=== PATIENT | male | born 1985 | race Two or more races ===

== ENCOUNTER 2020-05-10 19:47 | Inpatient (IN) | payer OTHER ==
[~2020-05-10] VITALS: Ht 188 cm; Wt 102.2 kg
[2020-05-10] MEDS ORDERED: cefTRIAXone 1GM/50ML D5W 50 ML IV ONE (23:30)
[2020-05-11] VITALS (7 sets, daily range): BP systolic 121–142; BP diastolic 75–94
[2020-05-11 00:41] LABS: Basophils # (auto) 0.1 10 ^3/uL (0-0.2); Basophils % (auto) 0.8 % (0.0-2.0); Eosinophils # (auto) 0.1 10 ^3/uL (0-0.8); Eosinophils % (auto) 1.2 % (0.0-7.0); Hematocrit 45.2 % (41.0-53.0); Hemoglobin 15.6 g/dL (13.5-17.5); Lymphocytes # (auto) 3.2 10 ^3/uL (0.4-5.4); Lymphocytes % (auto) 39.3 % (10.0-50.0); Mean Corpuscular Hemoglobin 29.3 pg (28.0-32.0); Mean Corpuscular Hgb Conc. 34.5 g/dL (32.0-36.0); Mean Corpuscular Volume 84.7 fL (80.0-100.0); Monocytes # (auto) 0.6 10 ^3/uL (0-1.3); Monocytes % (auto) 7.5 % (0.0-12.0); Neutrophils # (auto) 4.2 10 ^3/uL (1.6-8.6); Neutrophils % (auto) 51.2 % (37.0-80.0); Nucleated Red Blood Cells % 0.1 %; Platelet Count (auto) 232 10^3/uL (140-450); Red Blood Cells 5.34 10^6/uL (4.5-5.90); White Blood Cell 8.2 10^3/uL (4.4-10.8)
[2020-05-11 00:55] LABS: Albumin 4.2 g/dL (3.4-5.0); BUN/Creatinine Ratio 19.3; Calcium 9.4 mg/dL (8.5-10.1); Potassium 3.8 mmol/L (3.5-5.1)
[2020-05-11 00:57] LABS: Bilirubin, Total 0.7 mg/dL (0.2-1.0); Total Protein 8.5 g/dL (6.4-8.2)
[2020-05-11 02:19] LABS: CRP High Sensitivity 0.42 mg/dL (< 0.3)
[2020-05-11] MEDS ORDERED: VANCOMYCIN 1GM/250ML 250 ML IV ONE (04:15)
[2020-05-11] MEDS ORDERED: VANCOMYCIN PER PHARMACY 0 MG IV SCH (04:15)
[2020-05-11] MEDS ORDERED: NITROGLYCERIN 0.4 MG SL TAB SL PRN (04:15)
[2020-05-11] MEDS ORDERED: MORPHINE SULF INJ 2 MG/ML SYRINGE 1ML IV PRN (04:15)
--- NOTE | 2020-05-11 06:10 | NUR ---
arrival note patient arrived via wheelchair. pt is an inmate with federal guards at bedside.
--- NOTE | 2020-05-11 07:35 | NUR ---
took picture of wound at right hand third digit
--- NOTE | 2020-05-11 07:51 | NUR ---
Isabel swab walked to lab
[2020-05-11] MEDS: ENOXAPARIN SOD 40 MG/0.4 ML SYRINGE SC SCH (09:29)
[2020-05-11] MEDS: HYDROcodone-ACET 10/325MG TAB PO PRN ×2 (09:34→14:27)
--- NOTE | 2020-05-11 10:26 | NUR ---
Inhouse Covid swab walked to lab
[2020-05-11] MEDS: VANCOMYCIN 1GM/250ML 250 ML IV SCH ×2 (13:37→21:25)
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
--- NOTE | 2020-05-11 18:00 | NUR ---
PATIENT TRANSFERRED PATIENT COVID NEGATIVE AND TRANSFERRED TO ROOM 207, ASSUMED CARE OF PATIENT AWAKE AND ALERT. PATIENT RESPIRATION ARE EVEN AND UNLABORED NO S/S OF DISTRESS NOTED. PATIENT GUARD IS AT BEDSIDE. PATIENT INSTRUCTED TO CALL FOR ASSISTANCE NEED. BED IN LOWEST POSITION, SIDE RAILS UP X2, CALL LIGHT WITH IN REACH. WILL CONTINUE TO MONITOR.
--- NOTE | 2020-05-11 18:00 | NUR ---
Patient transferred to room 207A with RN, Trice Austin via wheelchair. Patient transferred with all belongings.
--- NOTE | 2020-05-11 19:30 | NUR ---
Opening Shift Note Assumed care of patient, awake and alert. No S/S of distress/SOB or pain. [employer] guards at bedside. Instructed to call for assist PRN, patient verbalized understanding. Safety precaution in place, call light within reach, will continue to monitor for changes Q1hr and PRN.
[2020-05-12 05:00] VITALS: BP 128/74
--- NOTE | 2020-05-12 05:27 | NUR ---
Followed up on [facility] result, chemical laboratory scientist said the specimen is not yet in, will follow up
--- NOTE | 2020-05-12 06:00 | NUR ---
Followed up again on [facility] but per lab staff, the test is still running
[2020-05-12 06:02] LABS: BUN/Creatinine Ratio 13.5; Calcium 8.9 mg/dL (8.5-10.1); Potassium 3.7 mmol/L (3.5-5.1)
--- NOTE | 2020-05-12 06:41 | NUR ---
Still no result for the [facility] [place]
[2020-05-12] MEDS: VANCOMYCIN 1GM/250ML 250 ML IV SCH ×3 (06:49→17:59)
[2020-05-12 08:14] LABS: INR 1.08 (0.9-1.15)
[2020-05-12] MEDS: HYDROcodone-ACET 10/325MG TAB PO PRN ×2 (08:17→16:30)
[2020-05-12 08:33] VITALS: BP 122/74
[2020-05-12] MEDS: ENOXAPARIN SOD 40 MG/0.4 ML SYRINGE SC SCH (09:44)
[2020-05-12 12:55] VITALS: BP 117/75
[2020-05-12 16:30] VITALS: BP 123/78
[2020-05-12 16:43] LABS: Hepatitis B Surface Antigen Negative (Negative)
[2020-05-12 16:44] LABS: Hepatitis C Antibody Negative (Negative)
[2020-05-12 16:45] LABS: Hepatitis A Ab IgM Negative; Hepatitis B Core IgM Negative
--- NOTE | 2020-05-12 19:45 | NUR ---
Patient ambulating in the hallway with jailguards, gait steady
--- NOTE | 2020-05-12 20:00 | NUR ---
Opening Shift Note Assumed care of patient, awake and alert. No S/S of distress/SOB or pain. Discussed on POC and to be NPO after MN, for I & D of the right hand tomorrow, patient verbalized understanding. Instructed to call for assist PRN, call light within reach, nursing home guards at bedside, will continue to monitor for changes Q1hr and PRN.
[2020-05-12 20:20] VITALS: BP 127/85
[2020-05-12 21:23] VITALS: BP 127/85
[2020-05-13] MEDS: VANCOMYCIN 1GM/250ML 250 ML IV SCH ×3 (00:10→18:12)
[2020-05-13 05:48] VITALS: BP 114/78
[2020-05-13] MEDS ORDERED: PROPOFOL 10 MG/ML 20 ML IV ONE ×2 (06:10→06:36)
[2020-05-13] MEDS ORDERED: DexAMETHasone SOD PHOS 10MG/1ML VIAL INJ ONE (06:10)
[2020-05-13] MEDS ORDERED: fentaNYL CITRATE 100 MCG/2 ML VL ONE (06:10)
[2020-05-13] MEDS ORDERED: ONDANSETRON HCL 4 MG/2 ML VIAL ONE (06:10)
[2020-05-13] MEDS ORDERED: KETOROLAC TROMETH 30 MG/ML 1ML VIAL ONE (06:10)
[2020-05-13] MEDS ORDERED: GLYCOPYRROLATE 0.2 MG/ML 1ML VIAL ONE (06:10)
[2020-05-13] MEDS ORDERED: MIDAZOLAM HCL 1MG/1ML-2 ML VIAL ONE (06:10)
[2020-05-13] MEDS ORDERED: LIDOCAINE 2% (LOCAL ANESTH.) PF 5ml SDV ONE (06:10)
--- NOTE | 2020-05-13 06:22 | NUR ---
Brought patient down to pre-op with international account manager, patient alert/oriented, not in distress. Endorsed to COLTON Rodriguez
[2020-05-13] MEDS ORDERED: ceFAZolin 1GM/50ML 100 ML IV ONE (06:29)
[2020-05-13] MEDS ORDERED: LIDOCAINE 1% HCL (LOCAL ANESTH.) INJ 20ML MDV ONE (06:29)
[2020-05-13] MEDS ORDERED: SUCCINYLCHOLINE CHLORIDE 20 MG/ML 10ML VIAL IV ONE (06:29)
[2020-05-13] MEDS ORDERED: DOXAPRAM HCL 20 MG/ML 20ML VIAL INJ IV ONE (06:29)
[2020-05-13] MEDS ORDERED: SODIUM CHLORIDE LOCK 10 ML ONE (06:36)
[2020-05-13] MEDS: BACITRACIN INJ 50000 UNIT VIAL ONE ×2 (06:54→07:00)
[2020-05-13] MEDS ORDERED: MEPERIDINE HCL (25 MG/ML) 1ML VIAL ONE (07:21)
[2020-05-13] MEDS ORDERED: BUPIVACAINE W/ EPINEPH 0.25% INJ 50ML MDV ONE (07:22)
[2020-05-13] MEDS: BUPIVACAINE 0.25% INJ 50ML VIAL ONE ×2 (07:25→07:35)
[2020-05-13] MEDS ORDERED: METOCLOPRAMIDE HCL 5MG/ml INJ 2ml VIAL IV PRN (07:30)
[2020-05-13] MEDS ORDERED: MORPHINE SULF INJ 2 MG/ML SYRINGE 1ML IV PRN (07:30)
[2020-05-13] MEDS ORDERED: HYDROmorphone HCL 2 MG/ML VL IV PRN (07:30)
[2020-05-13] MEDS ORDERED: ACCU-CHEK COMFORT CURVE STRIP VI ONE (07:30)
[2020-05-13] MEDS ORDERED: fentaNYL CITRATE 100 MCG/2 ML VL IV PRN (07:30)
--- NOTE | 2020-05-13 08:36 | NUR ---
CALLED 'S OFFICE, THEY SAID THE DR WILL NOT COME SEE THE PT FOR CONSULT DUE TO THEM NOT TAKING PT'S INSURANCE. CHARGE NURSE DAVID NOTIFIED.
[2020-05-13 09:00] VITALS: BP 132/92
[2020-05-13] MEDS: ENOXAPARIN SOD 40 MG/0.4 ML SYRINGE SC SCH (10:00)
--- NOTE | 2020-05-13 10:28 | NUR ---
NOTIFIED DR DYER THAT DR LOMAS ID PHYSICIAN DOES NOT SEE THIS INSURANCE.
[2020-05-13] MEDS: HYDROcodone-ACET 10/325MG TAB PO PRN ×3 (10:42→19:55)
[2020-05-13] MEDS ORDERED: VANCOMYCIN 1GM/250ML 250 ML IV ONE (11:15)
--- NOTE | 2020-05-13 11:52 | NUR ---
Nutrition Assessment Notes Please refer to link for full assessment notes. Est Energy needs: kcals (20-23 kcal/kgBW) Est Protein needs: 80-99 gms/day (0.8-1.0 gm/kgBW) Will continue to monitor and reassess prn. Addendum: 05/13/20 at [address] Amended: Links added.
[2020-05-13 12:46] VITALS: BP 127/78
[2020-05-13] MEDS: PIPERACILLIN-TAZOB 3.375GM 100 ML IV SCH ×2 (12:53→18:42)
[2020-05-13 17:00] VITALS: BP 145/81
--- NOTE | 2020-05-13 19:50 | NUR ---
Opening Shift Note Assumed care of patient, awake and alert. No S/S of distress/SOB or pain. Dressing to right hand is clean dry and intact. pulses palpable bilaterally to radial. , patient able to wiggle fingers and capillary refill <3 seconds. Instructed on POC and to call for assist PRN, will continue to monitor for changes Q1hr and PRN. bed in low position and call light within reach. guard at bedside.
--- NOTE | 2020-05-13 19:55 | NUR ---
pain pain 7/10 to right finger/hand, aching. patient medicated for pain
--- NOTE | 2020-05-13 20:55 | NUR ---
pain reported pain 3/10 tolerable level
[2020-05-13 21:09] VITALS: BP 120/83
[2020-05-14] MEDS: HYDROcodone-ACET 10/325MG TAB PO PRN ×5 (00:30→18:51)
[2020-05-14] MEDS: VANCOMYCIN 1GM/250ML 250 ML IV SCH ×4 (00:30→22:03)
--- NOTE | 2020-05-14 00:30 | NUR ---
pain pain 7/10 to right hand/finger patient medicated for pain
[2020-05-14] MEDS: PIPERACILLIN-TAZOB 3.375GM 100 ML IV SCH ×4 (01:23→18:52)
--- NOTE | 2020-05-14 01:30 | NUR ---
pain reassessment 3/10 pain to right hand/finger/ tolerable level of pain.
[2020-05-14 04:35] VITALS: BP 106/62
--- NOTE | 2020-05-14 04:46 | NUR ---
pain pain 8/10 to right hand/finger. patient medicated for pain. patient has palpable pulses bilaterally to radial, capillary refill <3sec, patient able to wiggle finger. Addendum: 05/14/20 at 0451 by SOFIE GALO RN RN dressing is clean dry and intact
--- NOTE | 2020-05-14 05:46 | NUR ---
pain reassessment 3/10 pain to right hand finger. patient reports tolerable level.
--- NOTE | 2020-05-14 06:35 | NUR ---
patient rounds patient is awake and alert denies sob distress or pain. patient is able to wiggle fingers on right hand, palpable bilateral radial pulses, capillary refill <3 seconds. dressing is clean dry and intact. IV is intact and patent. call light within reach. guard at bedside.
--- NOTE | 2020-05-14 07:16 | NUR ---
REPORT GIVEN TO DAYSHIFT RN PATIENT DENIES SOB DISTRESS OR PAIN
[2020-05-14 08:00] VITALS: BP 124/81
--- NOTE | 2020-05-14 08:00 | NUR ---
Opening Shift Note Assumed care of patient, awake and alert. No S/S of distress/SOB or pain. Instructed on POC and to call for assist PRN, will continue to monitor for changes Q1hr and PRN.
[2020-05-14] MEDS: ENOXAPARIN SOD 40 MG/0.4 ML SYRINGE SC SCH (08:58)
[2020-05-14 09:00] VITALS: BP 124/81
[2020-05-14 13:00] VITALS: BP 128/86
[2020-05-14 17:00] VITALS: BP 134/78
[2020-05-14] MEDS: IBUPROFEN 800 MG TAB PO PRN ×2 (17:46→22:03)
--- NOTE | 2020-05-14 18:53 | NUR ---
closing shift note Patient is comfortably resting in bed, no s/s of distress/sob noted/stated. Bed at lowest locked position and call light within reach. Guard at bedside for safety.
[2020-05-14 21:53] VITALS: BP 122/80
[2020-05-15] VITALS (7 sets, daily range): BP systolic 100–128; BP diastolic 61–90
[2020-05-15] MEDS: PIPERACILLIN-TAZOB 3.375GM 100 ML IV SCH ×4 (00:04→18:54)
[2020-05-15] MEDS: HYDROcodone-ACET 10/325MG TAB PO PRN ×5 (00:05→22:48)
[2020-05-15] MEDS: VANCOMYCIN 1GM/250ML 250 ML IV SCH ×3 (05:03→18:22)
[2020-05-15] MEDS: ENOXAPARIN SOD 40 MG/0.4 ML SYRINGE SC SCH (09:11)
[2020-05-15] MEDS: IBUPROFEN 800 MG TAB PO PRN (17:55)
--- NOTE | 2020-05-15 19:10 | NUR ---
Opening Shift Note Assumed care of patient from day shift RN patient awake and alert oriented x4. No S/S of distress/SOB or pain. Instructed on POC and to call for assist PRN, safety measures in place bed in lowest position side rails up x2 and call light with in reach. will continue to monitor for changes Q1hr and PRN.
[2020-05-16] MEDS: PIPERACILLIN-TAZOB 3.375GM 100 ML IV SCH ×4 (00:29→19:24)
[2020-05-16] MEDS: VANCOMYCIN 1GM/250ML 250 ML IV SCH ×4 (01:58→23:13)
[2020-05-16 05:00] VITALS: BP 118/79
[2020-05-16] MEDS: HYDROcodone-ACET 10/325MG TAB PO PRN ×2 (05:45→20:13)
[2020-05-16 08:00] VITALS: BP 115/76
[2020-05-16] MEDS: ENOXAPARIN SOD 40 MG/0.4 ML SYRINGE SC SCH (09:32)
[2020-05-16] MEDS: IBUPROFEN 800 MG TAB PO PRN ×2 (09:43→23:20)
[2020-05-16 12:00] VITALS: BP 125/86
--- NOTE | 2020-05-16 14:21 | NUR ---
Nutrition Followup Note Wt 104.5kg Pt was sleeping at time of rounds with guards outside the door. Pt is s/p debridement of wound on hand. Pt diet has been advanced to regular. Pt appetite appears to be good aeb pt with an avg po intake of 92% x 2 days per RN note Est Energy needs: 4534-7321 kcals (20-23 kcal/kgBW) Est Protein needs: 80-99 gms/day (0.8-1.0 gm/kgBW) Will continue to monitor and reassess prn. labs: WNL, gluc 139H BM: pt with 2 BMs 05/16 per RN note Skin: BS 20 low risk, wound on hand, full details in care nurse rn note PES: 1) Overweight r/t energy intake in excess of energy needs aeb 115% IBW and BMI of 28.2 kg/m2 2) Altered nutrition related lab values r/t current medical condition aeb hyperglycemia Comments Will continue to monitor PO status, skin status, pertinent labs and weight trends. Will f/u in 3-5 days. 1) Continue to carefully monitor pt PO intake to meet at least 75% of meals2) Continue current plan of care Expected Outcomes/Goals: Pt wt to trend down Pt labs to improve
[2020-05-16 16:52] VITALS: BP 124/70
--- NOTE | 2020-05-16 21:00 | NUR ---
Provided wound care to bilateral heels, and pictures taken. Upon assessment, patient has deep scratch on buttocks, patient refused wound care to that area and also refused picture taken of this area. Educated the importance of wound care, and importance for picture, patient verbally acknowledge education given, and still refused. Will continue to monitor patient.
[2020-05-16 22:00] VITALS: BP 121/83
[2020-05-17] MEDS: PIPERACILLIN-TAZOB 3.375GM 100 ML IV SCH ×4 (01:21→18:56)
[2020-05-17 05:00] VITALS: BP 131/71
[2020-05-17] MEDS: VANCOMYCIN 1GM/250ML 250 ML IV SCH ×3 (05:54→20:27)
[2020-05-17] MEDS: IBUPROFEN 800 MG TAB PO PRN ×2 (07:29→20:27)
[2020-05-17 09:36] VITALS: BP 120/70
[2020-05-17] MEDS: ENOXAPARIN SOD 40 MG/0.4 ML SYRINGE SC SCH (09:42)
--- NOTE | 2020-05-17 12:24 | NUR ---
WOUND CARE NOTE: New wound care request received regarding new skin issue noted by bedside nurse upon assessment. Bedside nurse took photograph of patient's new skin issue upon discovery for reference. Patient developed open wounds/abrasion to proximal Rt (0.5x1.0cm) and Lt (0.5x1.2cm) posterior ankle. Wound appears to be abrasions from leg cuffs. Cleansed patient's Rt and Lt posterior ankle wounds with wound cleanser,patted dry with gauze,applied Thera honey gel, covered with Band aid. Applied Stockinette to bilateral lower leg to protect skin from leg cuffs. Patient is four days s/p Irrigation and Debridement of Abscess, septic arthritis of Rt dorsal hand 3rd digit. MD ordered Daily dressing change. Patient's Rt hand 3rd digit has 7 cm well approximated sutured incision. Wound has mild erythema and mild edema, scant serous drainage noted, no odor noted. Patient is able to move hands and fingers. Cleansed patient's Rt hand 3rd digit wound with wound cleanser,patted dry with gauze,applied Xeroform dressing along incision, covered with gauze, wrapped with gauze roll and secured with tape. Further secured with salvador wrap dressing. Patient's buttocks noted with linear scratches, area is clean and dry, asymptomatic left open to air. Patient tolerated well. Guards at bedside. RECOMMENDATION: Nursing to continue with EOD/PRN dressing change to Rt and Lt posterior ankle wounds; Daily dressing change to R hand 3rd digit wound per MD order, continue monitoring by wound care while patient is hospitalized. Addendum: 05/17/20 at 1647 by Rachel Colon RN Amended: Links added.
[2020-05-17 12:55] VITALS: BP 129/83
[2020-05-17] MEDS: HYDROcodone-ACET 10/325MG TAB PO PRN (15:55)
[2020-05-17 16:33] VITALS: BP 124/89
[2020-05-17 22:00] VITALS: BP 131/74
[2020-05-18] MEDS: PIPERACILLIN-TAZOB 3.375GM 100 ML IV SCH ×4 (00:46→18:36)
[2020-05-18] MEDS: HYDROcodone-ACET 10/325MG TAB PO PRN (00:55)
[2020-05-18] MEDS: VANCOMYCIN 1GM/250ML 250 ML IV SCH ×3 (02:49→17:18)
[2020-05-18 02:53] LABS: Basophils # (auto) 0.1 10 ^3/uL (0-0.2); Basophils % (auto) 0.9 % (0.0-2.0); Eosinophils # (auto) 0.4 10 ^3/uL (0-0.8); Eosinophils % (auto) 5.6 % (0.0-7.0); Hematocrit 39.6 % (41.0-53.0); Hemoglobin 13.6 g/dL (13.5-17.5); Lymphocytes # (auto) 2.5 10 ^3/uL (0.4-5.4); Lymphocytes % (auto) 38.5 % (10.0-50.0); Mean Corpuscular Hemoglobin 29.5 pg (28.0-32.0); Mean Corpuscular Hgb Conc. 34.3 g/dL (32.0-36.0); Mean Corpuscular Volume 85.9 fL (80.0-100.0); Monocytes # (auto) 0.5 10 ^3/uL (0-1.3); Monocytes % (auto) 8.2 % (0.0-12.0); Neutrophils # (auto) 3.1 10 ^3/uL (1.6-8.6); Neutrophils % (auto) 46.8 % (37.0-80.0); Platelet Count (auto) 142 10^3/uL (140-450); Red Blood Cells 4.61 10^6/uL (4.5-5.90); Red Cell Distribution Width 13.4 % (11.8-14.3); White Blood Cell 6.6 10^3/uL (4.4-10.8)
[2020-05-18 03:13] LABS: Potassium 4.3 mmol/L (3.5-5.1)
[2020-05-18 03:14] LABS: BUN/Creatinine Ratio 14.2; Calcium 8.5 mg/dL (8.5-10.1)
[2020-05-18 05:00] VITALS: BP 125/80
--- NOTE | 2020-05-18 07:30 | NUR ---
RECEIVED REPORT FROM NIGHT NURSE. PATIENT RESTING IN BED, NO DISTRESS NOTED. GUARD AT BEDSIDE SIDE. SHACKLES TO BILATERAL ANKLES, OPEN WOUNDS TO BILATERAL ANKLES UNDER SHACKLES. DRESSINGS IN PLACE. HANDCUFF TO RIGHT WRIST, NO NOTED SKIN BREAKDOWN. WILL CONTINUE TO MONITOR.
[2020-05-18] MEDS: IBUPROFEN 800 MG TAB PO PRN ×2 (08:22→17:15)
[2020-05-18 08:50] VITALS: BP 126/79
[2020-05-18] MEDS: ENOXAPARIN SOD 40 MG/0.4 ML SYRINGE SC SCH (10:00)
--- NOTE | 2020-05-18 12:22 | NUR ---
DOCTOR NEEMA AT BEDSIDE.
[2020-05-18 12:47] VITALS: BP_SYST 129; BP_SYST 132; BP_DIAS 58; BP_DIAS 76
--- NOTE | 2020-05-18 13:30 | NUR ---
PATIENT IN THE SHOWER.
--- NOTE | 2020-05-18 14:00 | NUR ---
IV REMOVAL IV TO LEFT HAND SWOLLEN AND RED, PATIENT COMPLAINING OF PAIN. IV REMOVED. CATHETER TIP INTACT, PRESSURE DRESSING APPLIED.
--- NOTE | 2020-05-18 14:00 | NUR ---
DRESSING CHANGE DRESSING TO RIGHT HAND/ FINGER REMOVED. WOUND CLEANSED WITH WOUND CLEANSER, XEROFORM APPLIED, COVERED WITH 4X4 GAUZE, WRAPPED WITH GAUZE. WRAPPED WITH CAN BANDAGE. PATIENT TOLERATED IT WELL. WILL CONTINUE TO MONITOR.
[2020-05-18 17:00] VITALS: BP 121/75
[2020-05-18 21:22] VITALS: BP 129/82
[2020-05-19] MEDS: VANCOMYCIN 1GM/250ML 250 ML IV SCH ×4 (00:25→21:06)
[2020-05-19] MEDS: HYDROcodone-ACET 10/325MG TAB PO PRN ×2 (00:26→23:29)
[2020-05-19] MEDS: PIPERACILLIN-TAZOB 3.375GM 100 ML IV SCH ×4 (00:59→17:55)
[2020-05-19] MEDS: IBUPROFEN 800 MG TAB PO PRN ×2 (06:18→14:27)
[2020-05-19 06:27] VITALS: BP 134/73
[2020-05-19 09:00] VITALS: BP 131/82
[2020-05-19] MEDS: ENOXAPARIN SOD 40 MG/0.4 ML SYRINGE SC SCH (10:30)
--- NOTE | 2020-05-19 12:41 | NUR ---
Nutrition Followup Note Wt 103.3 kg Pt was sleeping at time of rounds with guards outside the door. Pt is s/p debridement of wound on hand. Pt is currently on regular diet with adequate PO of > 75% x 2 days Est Energy needs: 6401-3739 kcals (20-23 kcal/kgBW), Est Protein needs: 80-99 gms/day (0.8-1.0 gm/kgBW). Will continue to monitor and reassess prn. labs: WNL, gluc 387H BM: pt with 1 BM 05/18 per RN note Skin: BS 23 low risk, wound on hand, full details in account executive healthcare note PES: 1) Overweight r/t energy intake in excess of energy needs aeb 115% IBW and BMI of 28.2 kg/m2 2) Altered nutrition related lab values r/t current medical condition aeb hyperglycemia Comments Will continue to monitor PO status, skin status, pertinent labs and weight trends. Will f/u in 3-5 days. 1) consider CCHO 75 gm as pt with hx of DM. 2) consider MVI/C bid. 3) Continue current plan of care
[2020-05-19 13:00] VITALS: BP 133/89
[2020-05-19 17:00] VITALS: BP 120/70
--- NOTE | 2020-05-19 17:00 | NUR ---
DRESSING CHANGE ALL DRESSING REMOVED, WOUND CLEANSED AND REDRESSED WITH XEROFORM/4X4/KERLIX. PATIENT TOLERATED WELL.
--- NOTE | 2020-05-19 19:35 | NUR ---
RECEIVED PATIENT FROM DAY SHIFT RN. PATIENT RESTING IN BED. NO S/S OF DISTRESS NOTED. C/O PAIN @ 5/10 AFTER PAIN MEDICATION GIVEN EARLIER. REINFORCED SCHEDULE OF PAIN MANAGEMENT. WILL COME BACK FOR PAIN MEDICATION WHEN THE TIME IS DUE AND PER PATIENT REQUESTS. DRESSING ON RIGHT HAND C/D/I. POC INSTRUCTED AND ENCOURAGED PATIENT TO CALL FOR PETS AND PET SUPPLIES SALESPERSON IF NEEDED. BED IN LOWEST POSITION WITH SIDE RAILS UP X 2. CALL PETIT WITHIN REACH. GUARDS AT BEDSIDE. CONTINUE TO MONITOR FOR CHANGES Q1H AND PRN.
[2020-05-19 22:00] VITALS: BP 121/83
--- NOTE | 2020-05-19 23:29 | NUR ---
MEDICATED PATIENT FOR PAIN @ 04/04 ORDERED. CONTINUE TO MONITOR.
--- NOTE | 2020-05-20 00:25 | NUR ---
REASSESSED PAIN @ 01/02. CONTINUE TO MONITOR.
[2020-05-20] MEDS: PIPERACILLIN-TAZOB 3.375GM 100 ML IV SCH ×4 (00:35→18:39)
[2020-05-20] MEDS: VANCOMYCIN 1GM/250ML 250 ML IV SCH ×3 (04:14→17:08)
--- NOTE | 2020-05-20 04:46 | NUR ---
PATIENT RESTING IN BED WITH EYES CLOSED. NO S/S OF DISTRESS NOTED. CONTINUE TO MONITOR.
[2020-05-20 05:00] VITALS: BP 122/76
[2020-05-20 09:00] VITALS: BP 119/80
[2020-05-20] MEDS: ENOXAPARIN SOD 40 MG/0.4 ML SYRINGE SC SCH (10:17)
[2020-05-20] MEDS: IBUPROFEN 800 MG TAB PO PRN ×2 (10:18→18:39)
[2020-05-20 13:00] VITALS: BP 119/77
[2020-05-20 17:00] VITALS: BP 120/76
--- NOTE | 2020-05-20 17:48 | NUR ---
WOUND CARE COMPLETED TO RIGHT HAND 3rd FINGER INCISION- PER ORDER. PT TOLERATED PROCEDURE WELL. CALL LIGHT WITHIN REACH. GUARD AT BEDSIDE.
--- NOTE | 2020-05-20 19:35 | NUR ---
RECEIVED PATIENT FROM DAY SHIFT RN. PATIENT RESTING IN BED. NO S/S OF DISTRESS NOTED. C/O PAIN @ 5/10 AFTER PAIN MEDICATION GIVEN EARLIER. REINFORCED SCHEDULE OF PAIN MANAGEMENT. WILL COME BACK FOR PAIN MEDICATION WHEN THE TIME IS DUE AND PER PATIENT REQUESTS. DRESSING ON RIGHT HAND C/D/I. POC INSTRUCTED AND ENCOURAGED PATIENT TO CALL FOR PUBLIC IMPROVEMENT INSPECTOR IF NEEDED. BED IN LOWEST POSITION WITH SIDE RAILS UP X 2. CALL PETIT WITHIN REACH. GUARDS AT BEDSIDE. CONTINUE TO MONITOR FOR CHANGES Q1H AND PRN.
[2020-05-20 21:16] VITALS: BP 114/77
[2020-05-21] MEDS: VANCOMYCIN 1GM/250ML 250 ML IV SCH ×4 (00:51→22:36)
[2020-05-21] MEDS: PIPERACILLIN-TAZOB 3.375GM 100 ML IV SCH ×4 (00:52→18:33)
--- NOTE | 2020-05-21 01:36 | NUR ---
PATIENT RESTING IN BED WITH EYES CLOSED. NO S/S OF DISTRESS NOTED. CONTINUE TO MONITOR.
[2020-05-21 05:12] VITALS: BP 119/80
--- NOTE | 2020-05-21 07:42 | NUR ---
RECEIVED REPORT FROM NOC SHIFT RN. PATIENT RESTING IN BED AND WATCHING TV. NO S/S OF DISTRESS NOTED, DENIES PAIN AT THIS TIME. OBSERVED DRESSING ON RIGHT HAND C/D/I. POC DISCUSSED AND ENCOURAGED PATIENT TO CALL FOR PIT BOSS IF NEEDED. BED IN LOWEST POSITION WITH SIDE RAILS UP X 2. CALL PETIT WITHIN REACH. GUARDS AT BEDSIDE. WILL CONTINUE TO MONITOR FOR CHANGES Q1H AND PRN.
[2020-05-21 08:00] VITALS: BP 119/85
[2020-05-21 08:31] VITALS: BP 119/85
[2020-05-21] MEDS: ENOXAPARIN SOD 40 MG/0.4 ML SYRINGE SC SCH (09:55)
[2020-05-21 12:54] VITALS: BP 115/71
[2020-05-21 16:59] VITALS: BP 120/81
--- NOTE | 2020-05-21 18:36 | NUR ---
PATIENT REQUESTING PAIN MEDICATION FOR 5/10 PAIN ON RIGHT HAND. WILL MEDICATE PER eMAR.
[2020-05-21] MEDS: IBUPROFEN 800 MG TAB PO PRN (18:41)
[2020-05-21 23:22] VITALS: BP 131/84
[2020-05-22] MEDS: PIPERACILLIN-TAZOB 3.375GM 100 ML IV SCH ×4 (02:56→20:14)
[2020-05-22 05:25] VITALS: BP 117/62
[2020-05-22] MEDS: VANCOMYCIN 1GM/250ML 250 ML IV SCH ×3 (05:44→23:53)
--- NOTE | 2020-05-22 06:41 | NUR ---
[facility]SA SWAB SENT.PT RESTING COMFORTABLY;NO DISTRESS OBSERVED.
--- NOTE | 2020-05-22 07:35 | NUR ---
OPENING NOTE RECEIVED PT. FROM NOC SHIFT RN. ALERT AND ORIENTED X4, NO SOB OR S/S OF DISTRESS NOTED, DENIES PAIN AT THIS TIME. POC DISCUSSED AND ENCOURAGED PATIENT TO CALL FOR FASHION DIRECTOR PARTY PLAN SALES IF NEEDED. BED IN LOWEST POSITION WITH SIDE RAILS UP X 2. CALL PETIT WITHIN REACH. GUARDS AT BEDSIDE. WILL CONTINUE TO MONITOR FOR CHANGES Q1H AND PRN.
[2020-05-22 08:00] VITALS: BP 115/73
[2020-05-22 09:00] VITALS: BP 115/73
--- NOTE | 2020-05-22 10:36 | NUR ---
Nutrition Followup Note Wt 102.5 kg Pt was sleeping at time of rounds with guards outside the door. Pt is s/p debridement of wound on hand. Pt is currently on regular diet with adequate PO of > 75% x 3 days Est Energy needs: 2227-6483 kcals (20-23 kcal/kgBW), Est Protein needs: 80-99 gms/day (0.8-1.0 gm/kgBW). Will continue to monitor and reassess prn. labs: WNL, gluc 387H BM: pt with 1 BM yesterday per RN note Skin: BS 23 low risk, wound on hand, full details in transitional care manager note PES: 1) Overweight r/t energy intake in excess of energy needs aeb 115% IBW and BMI of 28.2 kg/m2 2) Altered nutrition related lab values r/t current medical condition aeb hyperglycemia Comments Will continue to monitor PO status, skin status, pertinent labs and weight trends. Will f/u in 3-5 days. 1) consider CCHO 75 gm as pt with hx of DM. 2) consider MVI/C bid. 3) Continue current plan of care
[2020-05-22] MEDS: IBUPROFEN 800 MG TAB PO PRN ×2 (10:39→20:23)
[2020-05-22] MEDS: ENOXAPARIN SOD 40 MG/0.4 ML SYRINGE SC SCH (10:40)
[2020-05-22 12:30] VITALS: BP 128/87
--- NOTE | 2020-05-22 13:25 | NUR ---
PER [facility] LAB STAFF, PATIENT IS POSITIVE FOR MRSA OF THE NARES. MD AWARE. PATIENT EDUCATED ON MRSA PRECAUTION.
--- NOTE | 2020-05-22 16:10 | NUR ---
WOUND CARE TO RIGHT HAND 3RD FINGER COMPLETED PER WOUND CARE ORDER.
--- NOTE | 2020-05-22 19:20 | NUR ---
OPENING NOTE RECEIVED PATIENT FROM DAY SHIFT RN. PATIENT RESTING IN BED. NO S/S OF DISTRESS NOTED. DRESSING ON RIGHT HAND C/D/I. POC INSTRUCTED AND ENCOURAGED PATIENT TO CALL FOR PRIMARY TEACHER IF NEEDED. BED IN LOWEST POSITION WITH SIDE RAILS UP X 2. CALL PETIT WITHIN REACH. GUARDS AT BEDSIDE. CONTINUE TO MONITOR FOR CHANGES Q1H AND PRN.
[2020-05-22 21:00] VITALS: BP 127/78
[2020-05-22] MEDS: MUPIROCIN 2% OINT 15gm or 22gm EACHNOSTRI SCH (22:00)
[2020-05-23] MEDS: PIPERACILLIN-TAZOB 3.375GM 100 ML IV SCH ×4 (01:20→18:48)
[2020-05-23 05:00] VITALS: BP 118/83
--- NOTE | 2020-05-23 07:24 | NUR ---
Closing note Endorsed care to day shift RN. No sob or distress noted.
--- NOTE | 2020-05-23 07:46 | NUR ---
OPENING NOTE RECEIVED PATIENT FROM DAY SHIFT RN. PATIENT RESTING IN BED. NO S/S OF DISTRESS NOTED. DRESSING ON RIGHT HAND C/D/I. POC INSTRUCTED AND ENCOURAGED PATIENT TO CALL FOR BOOK BINDER IF NEEDED. BED IN LOWEST POSITION WITH SIDE RAILS UP X 2. CALL PETIT WITHIN REACH. GUARDS AT BEDSIDE. CONTINUE TO MONITOR FOR CHANGES Q1H AND PRN.
[2020-05-23] MEDS: ENOXAPARIN SOD 40 MG/0.4 ML SYRINGE SC SCH (08:30)
[2020-05-23] MEDS: VANCOMYCIN 1GM/250ML 250 ML IV SCH ×3 (08:31→23:52)
[2020-05-23] MEDS: MUPIROCIN 2% OINT 15gm or 22gm EACHNOSTRI SCH ×2 (08:31→23:22)
[2020-05-23 09:09] VITALS: BP 123/83
[2020-05-23] MEDS: IBUPROFEN 800 MG TAB PO PRN (09:19)
--- NOTE | 2020-05-23 12:22 | NUR ---
PT REFUSED NEW IV CURRENT IV WAS PLACED 05/17. PT EDUCATED ON INFECTION PREVENTIONS AND ASEPSIS. PT VERBALIZED UNDERSTANDING AND STATES "YEAH BUT THIS ONE IS WORKING GOOD AND I DONT WANT OR NEED A NEW IV RIGHT NOW." Addendum: 05/23/20 at 1719 by MITZI KEYES RN RN CURRENT IV IS ASYMPTOMATIC, IS PATENT WITH NO S/S OF INFECTION OR INFILTRATION
[2020-05-23 14:10] VITALS: BP 134/85
--- NOTE | 2020-05-23 15:16 | NUR ---
WOUND CARE COMPLETED
[2020-05-23 17:18] VITALS: BP 119/76
--- NOTE | 2020-05-23 18:49 | NUR ---
IV insertion IV access obtained, via clean sterile technique by inserting 22 gauge catheter LEFT FOREARM after 2 attempt(s). IV secured properly. No trauma to site. Patient tolerated well. IV removal IV DC'd with clean sterile technique, catheter fully intact. Pressure dressing applied to site. Patient tolerated well.
[2020-05-23 22:00] VITALS: BP 119/75
[2020-05-24] MEDS: PIPERACILLIN-TAZOB 3.375GM 100 ML IV SCH ×4 (01:14→20:46)
[2020-05-24] MEDS: IBUPROFEN 800 MG TAB PO PRN ×3 (01:14→20:46)
[2020-05-24 05:10] VITALS: BP 124/75
[2020-05-24 08:00] VITALS: BP 130/84
[2020-05-24 09:00] VITALS: BP 130/81
[2020-05-24] MEDS: VANCOMYCIN 1GM/250ML 250 ML IV SCH ×2 (09:06→16:08)
[2020-05-24] MEDS: ENOXAPARIN SOD 40 MG/0.4 ML SYRINGE SC SCH (09:06)
[2020-05-24] MEDS: MUPIROCIN 2% OINT 15gm or 22gm EACHNOSTRI SCH ×2 (09:07→20:47)
--- NOTE | 2020-05-24 11:12 | NUR ---
PAIN Patient reports pain at 5/10 to right hand. Patient has requested Motrin for pain.
--- NOTE | 2020-05-24 11:30 | NUR ---
WOUND CARE NOTE: IN TO SEE PATIENT FOR SKIN INTEGRITY RE-EVALUATION. PATIENT HAS CURRENT ABI SCORE OF 20. PATIENT IS AMBULATORY. HE IS SHACKLED TO BED WITH CUFFS, TWO GUARDS AT BEDSIDE. PATIENT HAS INTACT POST SURGICAL DRESSING TO RIGHT HAND. PATIENT BEING FOLLOWED BY SURGEON FOR THIS WOUND. PATIENT'S ABRASIONS TO THE POSTERIOR ANKLES RENDERED FROM HIS CUFFS AREA HEALING WELL, WITH NO WOUND NOTED TO RIGHT ANKLE, SMALL 0.2 X 0.5 PARTIAL THICKNESS WOUND TO LEFT POSTERIOR ANKLE. THERAHONEY, OPTIFOAM GENTLE DRESSING APPLIED FOR REFERENCE. PATIENT HAS XEROSIS (DRY SKIN ) NOTED TO BILATERAL BUTTOCK. PATIENT HAS BEEN SCRATCHING HIS SKIN D/T DRYNESS. APPLIED HYDRAGUARD BARRIER CREAM TO SKIN FOR HYDRATION. NO OTHER SKIN INTEGRITY ISSUES NOTED. RECOMMEND: BID APPLICATION WITH HYDRAGUARD TO BUTTOCKS SKIN, DRESSING CHANGES TO RIGHT HAND WOUND PER SURGEON'S ORDER, CONTINUATION WITH ALL OTHER WOUND CARE ORDERS PREVIOUSLY PRESCRIBED BY MD. NO FURTHER WOUND CARE MONITORING IS NEEDED AT THIS TIME. Addendum: 05/24/20 at 1609 by Bridget Tovar RN Amended: Links added.
[2020-05-24 13:00] VITALS: BP 134/80
--- NOTE | 2020-05-24 16:15 | NUR ---
Wound care complete per MD orders Addendum: 05/24/20 at 181 by MARGRET KILPATRICK RN RN Wound care to patients right finger. Patient tolerated well, with no complains of discomfort. Addendum: 05/24/20 at 1818 by MARGRET KILPATRICK RN RN Dressing to right hand is c/d/i, no odor noted.
[2020-05-24 16:37] VITALS: BP 123/80
[2020-05-24 21:35] VITALS: BP 120/76
[2020-05-25] VITALS (7 sets, daily range): BP systolic 115–137; BP diastolic 69–84
[2020-05-25] MEDS: VANCOMYCIN 1GM/250ML 250 ML IV SCH ×3 (00:03→18:46)
[2020-05-25] MEDS: PIPERACILLIN-TAZOB 3.375GM 100 ML IV SCH ×4 (03:06→20:51)
[2020-05-25] MEDS: MUPIROCIN 2% OINT 15gm or 22gm EACHNOSTRI SCH ×2 (09:55→21:48)
[2020-05-25] MEDS: ENOXAPARIN SOD 40 MG/0.4 ML SYRINGE SC SCH (09:55)
[2020-05-25] MEDS: IBUPROFEN 800 MG TAB PO PRN ×2 (10:05→20:51)
--- NOTE | 2020-05-25 11:45 | NUR ---
Nutrition Followup Note Wt 102.3 kg Pt was awake at time of rounds with guards at bedside. Pt is currently on regular diet with adequate PO of 100% x 3 days. Pt reports to distress, feels good, doing well. Est Energy needs: 4003-8077 kcals (20-23 kcal/kgBW), Est Protein needs: 80-99 gms/day (0.8-1.0 gm/kgBW). Will continue to monitor and reassess prn. labs: WNL, Gluc 387H BM: Pt with 1 BM today per RN note Skin: BS 20 low risk, wound on hand, full details in child care lead teacher note PES: 1) Overweight r/t energy intake in excess of energy needs aeb 115% IBW and BMI of 28.2 kg/m2 2) Altered nutrition related lab values r/t current medical condition aeb hyperglycemia Comments Will continue to monitor PO status, skin status, pertinent labs and weight trends. Will f/u in 3-5 days. 1) consider CCHO 75 gm as pt with hx of DM. 2) consider MVI/C bid. 3) Continue current plan of care
--- NOTE | 2020-05-25 12:45 | NUR ---
Dr Zaragoza on unit
--- NOTE | 2020-05-25 17:05 | NUR ---
IV removal IV DC'd with clean sterile technique, catheter fully intact. Pressure dressing applied to site. Patient tolerated well.
--- NOTE | 2020-05-25 17:05 | NUR ---
IV insertion IV access obtained, via clean sterile technique by inserting 22 gauge catheter at after 1 attempt. IV secured properly. No trauma to site.
--- NOTE | 2020-05-25 19:20 | NUR ---
OPENING SHIFT NOTE Assumed care of patient who is A&O x4. Currently on RA with no s/s of distress. Reports 6/10 pain to right hand. Pain management options discussed. Dressing to right hand is CDI. PIN in left forearm is intact and patent. Flushed with 10ml NS. Patient is ambulatory without the use of assistive devices at baseline. Metal restraints present on right wrist and bilateral ankles. Armed correctional officers x2 at the bedside for supervision. POC discussed and patient verbalizes understanding. Bed is in low locked position with side rails up x2. Call light is within reach and patient encouraged to call for assistance when needed. Will continue to monitor for changes PRN.
[2020-05-26] MEDS: VANCOMYCIN 1GM/250ML 250 ML IV SCH ×3 (02:14→18:41)
[2020-05-26] MEDS: PIPERACILLIN-TAZOB 3.375GM 100 ML IV SCH ×4 (03:09→21:20)
[2020-05-26 05:00] VITALS: BP 120/78
--- NOTE | 2020-05-26 07:59 | NUR ---
OPENING NOTE ASSUMED CARE OF PT. ALERT AND ORIENTED. NO S/S OF SOB/DISTRESS NOTED. BED SET TO LOWEST POSITION/LOCKED. BEDSIDE RAILS UP X2. CALL LIGHT WITHIN REACH. INSTRUCTED PT TO CALL FOR ASSISTANCE. UPDATED ON POC. PT VERBALIZED UNDERSTANDING. WILL CONTINUE TO MONITOR Q 1HR AND PRN.
[2020-05-26 09:00] VITALS: BP 126/75
[2020-05-26] MEDS: ENOXAPARIN SOD 40 MG/0.4 ML SYRINGE SC SCH (09:39)
[2020-05-26] MEDS: MUPIROCIN 2% OINT 15gm or 22gm EACHNOSTRI SCH ×2 (09:39→21:21)
[2020-05-26 13:00] VITALS: BP 133/66
[2020-05-26] MEDS: HYDROcodone-ACET 10/325MG TAB PO PRN ×2 (14:30→21:39)
[2020-05-26 16:48] VITALS: BP 144/68
--- NOTE | 2020-05-26 20:00 | NUR ---
Opening Shift Note Assumed care of patient, awake and alert. No S/S of distress/SOB or pain. Instructed on POC and to call for assist PRN, will continue to monitor for changes Q1hr and PRN.Right hand dressing dry and intact.
[2020-05-26 22:00] VITALS: BP 124/78
[2020-05-27] MEDS: VANCOMYCIN 1GM/250ML 250 ML IV SCH ×3 (01:44→18:08)
[2020-05-27] MEDS: PIPERACILLIN-TAZOB 3.375GM 100 ML IV SCH ×4 (03:02→20:29)
[2020-05-27 05:00] VITALS: BP 123/76
--- NOTE | 2020-05-27 07:20 | NUR ---
Care report given to Gregg White, patient is resting no discomfort.
[2020-05-27] MEDS: HYDROcodone-ACET 10/325MG TAB PO PRN ×2 (08:12→19:47)
[2020-05-27 09:00] VITALS: BP 129/85
--- NOTE | 2020-05-27 09:24 | NUR ---
2244 05/27/20 - Contacted by [facility] vocational case manager Mirtha, provided verbal update on patient's current medical status. Mirtha requested current clinical notes, which was faxed to [phone].
[2020-05-27] MEDS: MUPIROCIN 2% OINT 15gm or 22gm EACHNOSTRI SCH (10:30)
[2020-05-27] MEDS: ENOXAPARIN SOD 40 MG/0.4 ML SYRINGE SC SCH (10:30)
[2020-05-27 13:00] VITALS: BP 139/80
--- NOTE | 2020-05-27 14:30 | NUR ---
SPOKE WITH DR. DYER, HE SAID PT IS CLEARED FOR DISCHARGE, TO FOLLOW UP IN 1 WEEK FOR SURE REMOVAL. HE SAID TO COVER INCISION WITH GAUZE OR BANDAGE.
[2020-05-27 16:59] VITALS: BP 137/79
[2020-05-27 21:00] VITALS: BP 125/81
[2020-05-28] MEDS: HYDROcodone-ACET 10/325MG TAB PO PRN ×4 (01:14→22:32)
[2020-05-28] MEDS: VANCOMYCIN 1GM/250ML 250 ML IV SCH ×3 (01:38→17:35)
[2020-05-28] MEDS: PIPERACILLIN-TAZOB 3.375GM 100 ML IV SCH ×4 (02:40→22:14)
[2020-05-28 05:00] VITALS: BP 122/63
--- NOTE | 2020-05-28 07:10 | NUR ---
Opening Shift Note Assumed care of patient, awake and alert. No S/S of distress/SOB or pain. Instructed on POC and to call for assist PRN, will continue to monitor for changes Q1hr and PRN. Guards present at bedside. Bed locked in lowest position, HOB elevated at least 30 degrees and call light is within reach.
[2020-05-28 09:00] VITALS: BP 127/74
[2020-05-28] MEDS: ENOXAPARIN SOD 40 MG/0.4 ML SYRINGE SC SCH (09:56)
[2020-05-28 13:00] VITALS: BP 125/72
--- NOTE | 2020-05-28 14:19 | NUR ---
Nutrition Followup Note Wt 104.5 kg Pt is doing well denies any GI issues and appetite is good aeb pt with 100% po intake x 3 days per Rn note. Per RN note reports pt is clear for DC Est Energy needs: 8434-4891 kcals (20-23 kcal/kgBW), Est Protein needs: 80-99 gms/day (0.8-1.0 gm/kgBW). Will continue to monitor and reassess prn. labs: WNL, Gluc 387H on 05/18 BM: Pt with 1 BM today per RN note Skin: BS 20 low risk, wound on hand, full details in wound care rn note PES: 1) Overweight r/t energy intake in excess of energy needs aeb 115% IBW and BMI of 28.2 kg/m2 2) Altered nutrition related lab values r/t current medical condition aeb hyperglycemia Comments Will continue to monitor PO status, skin status, pertinent labs and weight trends. Will f/u in 3-5 days. 1) consider CCHO 75 gm as pt with hx of DM. 2) consider MVI/C bid. 3) Continue current plan of care
[2020-05-28 16:49] VITALS: BP 125/71
--- NOTE | 2020-05-28 19:28 | NUR ---
ENDORSED CARE TO NOC SHIFT RN
[2020-05-28 23:26] VITALS: BP 143/85
[2020-05-29] MEDS: PIPERACILLIN-TAZOB 3.375GM 100 ML IV SCH ×4 (03:06→22:52)
[2020-05-29 04:38] VITALS: BP 107/69
[2020-05-29] MEDS: VANCOMYCIN 1GM/250ML 250 ML IV SCH ×4 (06:44→22:22)
--- NOTE | 2020-05-29 07:40 | NUR ---
Opening Note Received report from night RN. Patient is awake, alert and oriented x4. No signs or symptoms of distress noted at this time. Dressing to right hand is clean, dry and intact. Patient denies pain at this time. Reviewed plan of care with patient, patient verbalized understanding. Bed in low and locked position, call light within reach. Will continue to monitor Q1 hour and PRN. Two guards at bedside.
[2020-05-29 09:00] VITALS: BP 116/71
--- NOTE | 2020-05-29 10:41 | NUR ---
IV Insertion IV access obtained, via clean sterile technique by inserting 22 gauge catheter to the left hand after one attempt. IV secured properly. No trauma to site. Patient tolerated well. Will continue to monitor Q1 hour and PRN.
[2020-05-29 13:00] VITALS: BP 123/68
--- NOTE | 2020-05-29 14:10 | NUR ---
Pain Patient complains of pain to right hand and is requesting NORCO. Will medicate per orders. Will continue to monitor Q1 hour and PRN.
[2020-05-29] MEDS: HYDROcodone-ACET 10/325MG TAB PO PRN ×2 (14:14→18:38)
[2020-05-29] MEDS: ENOXAPARIN SOD 40 MG/0.4 ML SYRINGE SC SCH (14:14)
[2020-05-29 16:52] VITALS: BP 131/76
--- NOTE | 2020-05-29 17:20 | NUR ---
Patient up to shower
--- NOTE | 2020-05-29 17:45 | NUR ---
Dressing changed Dressing changed completed to per MD orders. Patient tolerated well. Will continue to monitor Q1 hour and PRN.
--- NOTE | 2020-05-29 19:23 | NUR ---
Opening Shift Note Assumed care of patient, awake and alert x4. No S/S of distress/SOB or pain. Instructed on POC and to call for assist PRN, will continue to monitor for changes Q1hr and PRN.
--- NOTE | 2020-05-29 19:23 | NUR ---
Closing Note Report given to night shift manager RN. No signs or symptoms of distress noted at this time. Two guards at bedside.
[2020-05-29 22:00] VITALS: BP 125/78
[2020-05-30] MEDS: PIPERACILLIN-TAZOB 3.375GM 100 ML IV SCH ×4 (03:32→21:10)
[2020-05-30] MEDS: VANCOMYCIN 1GM/250ML 250 ML IV SCH ×3 (04:12→19:37)
--- NOTE | 2020-05-30 04:51 | NUR ---
Patient resting in bed. Denies any needs right now.
[2020-05-30 05:09] VITALS: BP 123/75
--- NOTE | 2020-05-30 07:40 | NUR ---
OPENING SHIFT NOTE: PATIENT RESTING IN BED, A/O X4 AWAKE. C/O PAIN IN THE LEFT LATERAL ABDOMEN AND FLANK. RESPIRATIONS EVEN AND UNLABORED. UPDATED ON PLAN OF CARE. CALL LIGHT WITHIN REACH, PATIENT ABLE TO RETURN DEMONSTRATION URINE STRAINING. WILL CONTINUE TO MONITOR. Addendum: 05/30/20 at 1237 by ABDIRIZAK GUILLERMO RN RN -MISTAKEN ENTRY WRONG PATIENT- OPENING SHIFT NOTE: PATIENT AWAKE RESTING IN BED, DRESSING TO LEFT MIDDLE FINGER CDI. PATIENT C/O PAIN 7/10 SHARP IN THAT INCISION. UPDATED ON PLAN OF CARE, PATIENT VERBALIZED UNDERSTANDING. PATIENT EDUCATION ON MIDLINE GIVEN AND MADE AWARE NEED FOR ASSISTED IV ANTIBIOTICS. CALL LIGHT WITHIN REACH, GUARDS AT BEDSIDE. WILL CONTINUE TO MONITOR.
[2020-05-30 09:00] VITALS: BP 111/67
[2020-05-30] MEDS: HYDROcodone-ACET 10/325MG TAB PO PRN ×2 (10:13→14:09)
[2020-05-30] MEDS: ENOXAPARIN SOD 40 MG/0.4 ML SYRINGE SC SCH (10:13)
--- NOTE | 2020-05-30 11:40 | NUR ---
MD ZENAIDA WORLEY. POSSIBLE PLANS FOR LITHOTRIPSY SATURDAY IF UNABLE TO PASS STONE. Addendum: 05/30/20 at 1234 by ABDIRIZAK GUILLERMO RN RN -MISTAKEN ENTRY-
[2020-05-30 13:00] VITALS: BP 129/80
--- NOTE | 2020-05-30 14:17 | NUR ---
Midline Placement: Patient educated on need for midline placement. All risks and benefits explained and all questions and concerns addresses prior to procedure. 18g/10 cm midline inserted via left brachial vein using Ultrasound. Sterile technique utilized. Blood return obtained from the single lumen and flushed easily with NS using proper technique. Midline secured with saline lock; biodisc and occlusive dressing applied. Primary RN Karlie notified. Midline lot # [id number]
[2020-05-30 16:59] VITALS: BP 131/80
--- NOTE | 2020-05-30 19:02 | NUR ---
CARE ENDORSED TO NOC RN.
[2020-05-30 21:19] VITALS: BP 123/76
[2020-05-31] MEDS: VANCOMYCIN 1GM/250ML 250 ML IV SCH ×4 (01:51→23:41)
[2020-05-31] MEDS: HYDROcodone-ACET 10/325MG TAB PO PRN ×4 (01:58→23:53)
[2020-05-31] MEDS: PIPERACILLIN-TAZOB 3.375GM 100 ML IV SCH ×4 (03:04→20:19)
--- NOTE | 2020-05-31 04:44 | NUR ---
Dressing changed Dressing changed completed to per MD orders. Patient tolerated well. Will continue to monitor Q1 hour and PRN.
[2020-05-31 05:25] VITALS: BP 110/76
--- NOTE | 2020-05-31 06:42 | NUR ---
END OF SHIFT NOTE WILL ENDORSE PT CARE TO DAY SHIFT RN. PT IS AOX4,NO S/S OF DISTRESS OR SOB
--- NOTE | 2020-05-31 08:00 | NUR ---
OPENING SHIFT NOTE: PATIENT RESTING IN BED AWAKE, UPDATED ON PLAN OF CARE. PATIENT VERBALIZED UNDERSTANDING. CALL LIGHT WITHIN REACH, GUARDS AT BEDSIDE, WILL CONTINUE TO MONITOR.
--- NOTE | 2020-05-31 08:45 | NUR ---
PATIENT C/O DRESSING TO RIGHT MIDDLE FINGER FALLING OFF, WILL RE-DRESS PER ORDERS.
[2020-05-31 09:00] VITALS: BP 133/73
--- NOTE | 2020-05-31 09:00 | NUR ---
DRESSING TO RIGHT MIDDLE FINGER CHANGED, CDI.
[2020-05-31] MEDS: ENOXAPARIN SOD 40 MG/0.4 ML SYRINGE SC SCH (10:28)
--- NOTE | 2020-05-31 10:55 | NUR ---
Nutrition Followup Note Wt 101.9 kg Pt sleeping with guards by bedside. pt with no distress noted currently on regular diet with adequate PO of 100% x 4 per RN doc Est Energy needs: 3427-3116 kcals (20-23 kcal/kgBW), Est Protein needs: 80-99 gms/day (0.8-1.0 gm/kgBW). Will continue to monitor and reassess prn. labs: WNL, 05/28 BM: Pt with 1 BM today per RN note Skin: BS 22 low risk, wound on hand, full details in memory care program resident note PES: 1) Overweight r/t energy intake in excess of energy needs aeb 115% IBW and BMI of 28.2 kg/m2 2) Altered nutrition related lab values r/t current medical condition aeb hyperglycemia Comments Will continue to monitor PO status, skin status, pertinent labs and weight trends. Will f/u in 3-5 days. 1) consider CCHO 75 gm as pt with hx of DM. 2) consider MVI/C bid. 3) Continue current plan of care
[2020-05-31 13:00] VITALS: BP 127/73
--- NOTE | 2020-05-31 14:39 | NUR ---
PATIENT AMBULATING AROUND UNIT, AND PERFORMED PERSONAL HYGIENE.
[2020-05-31 17:00] VITALS: BP 136/66
--- NOTE | 2020-05-31 17:53 | NUR ---
CARE ENDORSED TO MARTIR SEGURA.
--- NOTE | 2020-05-31 17:54 | NUR ---
Assumed care of patient Patient resting in bed with even and unlabored respirations on room air, no distress noted. Dressing to the right 3rd finger is clean, dry and intact. Instructed patient on POC, fall precautions and to call for assistance as needed. Patient verbalized understanding. Fall precautions in place with call light within reach. Guards at bedside.
--- NOTE | 2020-05-31 18:59 | NUR ---
Closing note Patient resting in bed with even and unlabored respirations on room air, no distress noted. Fall precautions in place with call light within reach.
--- NOTE | 2020-05-31 19:05 | NUR ---
Care endorsed to COLTON Trimble.
--- NOTE | 2020-05-31 19:30 | NUR ---
Opening Shift Note Assumed care of patient, awake and alert x4. Patient denies pain or shortness of breath at this time. No sign/symptoms of distress noted or verbalized at this time. Instructed on plan of care and encouraged patient to call for assistance as needed, patient verbalized understanding. Bed is locked in lowest position, side rails x 2 are up, call light is within reach, and guards noted at the bedside.
[2020-05-31 22:00] VITALS: BP 126/81
[2020-06-01] MEDS: PIPERACILLIN-TAZOB 3.375GM 100 ML IV SCH ×4 (03:04→22:41)
[2020-06-01 05:30] VITALS: BP 113/75
[2020-06-01] MEDS: HYDROcodone-ACET 10/325MG TAB PO PRN ×3 (05:53→20:35)
[2020-06-01] MEDS: VANCOMYCIN 1GM/250ML 250 ML IV SCH ×3 (06:43→20:12)
--- NOTE | 2020-06-01 06:48 | NUR ---
Wound Care Wound care to right 3rd digit performed as ordered by .
--- NOTE | 2020-06-01 07:30 | NUR ---
Opening Shift Note Assumed care of patient, awake and alert. No S/S of distress/SOB or pain. Instructed on POC and to call for assist PRN, will continue to monitor for changes Q1hr and PRN. Fall precautions in place per safety protocol.
--- NOTE | 2020-06-01 08:01 | NUR ---
MRI Called Radiology regarding pending MRI of hand. Per Radiology, they don't "hand" MRI's here. Will cont to monitor patient.
[2020-06-01 08:36] VITALS: BP 116/76
--- NOTE | 2020-06-01 08:45 | NUR ---
Vanco Patients morning Vanco line found to be closed. Per pharmacy open vanco line to infuse morning Vanco and they will discuss new time for afternoon vanco. Will cont to monitor patient.
[2020-06-01] MEDS: ENOXAPARIN SOD 40 MG/0.4 ML SYRINGE SC SCH (10:53)
[2020-06-01 13:00] VITALS: BP 134/83
[2020-06-01 17:00] VITALS: BP 133/76
--- NOTE | 2020-06-01 20:05 | NUR ---
Opening Shift Note Assumed care of patient, awake and alert. No S/S of distress/SOB or pain. Dressing to right middle finger dry and intact, no drainage noted. Longterm guards at bedside. Instructed on POC and to call for assist PRN, patient verbalized understanding. Safety precaution in place, call light within reach, will continue to monitor for changes Q1hr and PRN.
[2020-06-02] MEDS: VANCOMYCIN 1GM/250ML 250 ML IV SCH ×3 (02:45→17:20)
[2020-06-02] MEDS: PIPERACILLIN-TAZOB 3.375GM 100 ML IV SCH ×4 (03:47→21:00)
[2020-06-02] MEDS: HYDROcodone-ACET 10/325MG TAB PO PRN ×4 (04:59→23:02)
--- NOTE | 2020-06-02 05:02 | NUR ---
Dressing to right middle finger changed per MD order
[2020-06-02 06:00] VITALS: BP 127/77
[2020-06-02 07:22] LABS: Basophils # (auto) 0.1 10 ^3/uL (0-0.2); Basophils % (auto) 1.9 % (0.0-2.0); Eosinophils # (auto) 0.4 10 ^3/uL (0-0.8); Eosinophils % (auto) 8.3 % (0.0-7.0); Hematocrit 45.1 % (41.0-53.0); Hemoglobin 15.2 g/dL (13.5-17.5); Lymphocytes # (auto) 1.6 10 ^3/uL (0.4-5.4); Lymphocytes % (auto) 33.6 % (10.0-50.0); Mean Corpuscular Hemoglobin 29.1 pg (28.0-32.0); Mean Corpuscular Hgb Conc. 33.8 g/dL (32.0-36.0); Monocytes # (auto) 0.5 10 ^3/uL (0-1.3); Monocytes % (auto) 10.1 % (0.0-12.0); Neutrophils # (auto) 2.2 10 ^3/uL (1.6-8.6); Neutrophils % (auto) 46.1 % (37.0-80.0); Nucleated Red Blood Cells % 0.1 %; Platelet Count (auto) 199 10^3/uL (140-450); Red Blood Cells 5.25 10^6/uL (4.5-5.90); Red Cell Distribution Width 13.2 % (11.8-14.3); White Blood Cell 4.8 10^3/uL (4.4-10.8)
[2020-06-02 07:33] LABS: Albumin 3.9 g/dL (3.4-5.0); Potassium 4.6 mmol/L (3.5-5.1)
[2020-06-02 07:36] LABS: BUN/Creatinine Ratio 15.5; Bilirubin, Total 0.4 mg/dL (0.2-1.0); Total Protein 7.9 g/dL (6.4-8.2)
[2020-06-02] MEDS: ENOXAPARIN SOD 40 MG/0.4 ML SYRINGE SC SCH (11:09)
[2020-06-02 13:00] VITALS: BP 120/71
[2020-06-02 16:56] VITALS: BP 126/85
[2020-06-02 22:00] VITALS: BP 138/84
[2020-06-03] MEDS: VANCOMYCIN 1GM/250ML 250 ML IV SCH ×5 (00:08→20:13)
[2020-06-03] MEDS: PIPERACILLIN-TAZOB 3.375GM 100 ML IV SCH ×4 (02:59→21:21)
[2020-06-03 05:00] VITALS: BP 126/75
--- NOTE | 2020-06-03 05:56 | NUR ---
Attempted to change right hand wound dressing but patient requested to do it later today. Dressing dry and intact, no drainage noted. Will endorse to rené SEGURA
[2020-06-03] MEDS: HYDROcodone-ACET 10/325MG TAB PO PRN ×4 (08:07→21:21)
[2020-06-03 09:00] VITALS: BP 121/83
[2020-06-03] MEDS: ENOXAPARIN SOD 40 MG/0.4 ML SYRINGE SC SCH (09:49)
--- NOTE | 2020-06-03 12:08 | NUR ---
Nutrition Followup Note Wt 104.2 kg Pt sleeping with guards by bedside. pt with no distress noted currently on regular diet with adequate PO of 100% x 4 per RN doc Est Energy needs: 6156-9450 kcals (20-23 kcal/kgBW), Est Protein needs: 80-99 gms/day (0.8-1.0 gm/kgBW). Will continue to monitor and reassess prn. labs: GLU 247 H BM: Pt with 1 BM today per RN note Skin: BS 21 low risk, wound on hand, full details in home care aide note PES: 1) Overweight r/t energy intake in excess of energy needs aeb 115% IBW and BMI of 28.2 kg/m2 2) Altered nutrition related lab values r/t current medical condition aeb hyperglycemia Comments Will continue to monitor PO status, skin status, pertinent labs and weight trends. Will f/u in 3-5 days. 1) consider CCHO 75 gm as pt with hx of DM. 2) consider MVI/C bid. 3) Continue current plan of care
[2020-06-03 13:00] VITALS: BP 124/73
[2020-06-03 17:00] VITALS: BP 132/80
--- NOTE | 2020-06-03 19:50 | NUR ---
Opening Shift Note Assumed care of patient, awake and alert. Fall and safety precautions in place. Guards at bedside. Call light within reach and able to use. No S/S of distress/SOB. Instructed on POC and to call for assist PRN, patient verbalized understanding and in agreement. Will continue to monitor for changes Q1hr and PRN.
--- NOTE | 2020-06-03 20:20 | NUR ---
WOUND CARE PER MD ORDER, WOUND CARE PERFORMED AT THIS TIME. PATIENT TOLERATED WELL. WILL CONTINUE TO MONITOR.
[2020-06-03 22:00] VITALS: BP 121/69
[2020-06-04] MEDS: PIPERACILLIN-TAZOB 3.375GM 100 ML IV SCH ×4 (02:03→21:18)
[2020-06-04] MEDS: HYDROcodone-ACET 10/325MG TAB PO PRN ×4 (03:25→21:19)
[2020-06-04] MEDS: VANCOMYCIN 1GM/250ML 250 ML IV SCH ×3 (04:54→18:24)
[2020-06-04 05:00] VITALS: BP 104/71
[2020-06-04 07:09] LABS: Basophils # (auto) 0.1 10 ^3/uL (0-0.2); Eosinophils # (auto) 0.4 10 ^3/uL (0-0.8); Eosinophils % (auto) 7.4 % (0.0-7.0); Hematocrit 44.8 % (41.0-53.0); Hemoglobin 15.2 g/dL (13.5-17.5); Lymphocytes # (auto) 2.2 10 ^3/uL (0.4-5.4); Lymphocytes % (auto) 37.3 % (10.0-50.0); Mean Corpuscular Hemoglobin 29.2 pg (28.0-32.0); Mean Corpuscular Hgb Conc. 33.9 g/dL (32.0-36.0); Mean Corpuscular Volume 85.9 fL (80.0-100.0); Monocytes # (auto) 0.7 10 ^3/uL (0-1.3); Monocytes % (auto) 12.2 % (0.0-12.0); Neutrophils # (auto) 2.4 10 ^3/uL (1.6-8.6); Neutrophils % (auto) 41.1 % (37.0-80.0); Nucleated Red Blood Cells % 0.1 %; Platelet Count (auto) 200 10^3/uL (140-450); Red Blood Cells 5.22 10^6/uL (4.5-5.90); Red Cell Distribution Width 13.3 % (11.8-14.3); White Blood Cell 5.9 10^3/uL (4.4-10.8)
[2020-06-04 07:20] LABS: BUN/Creatinine Ratio 15.2; Calcium 9.5 mg/dL (8.5-10.1); Potassium 5.1 mmol/L (3.5-5.1)
[2020-06-04 08:00] VITALS: BP 122/74
--- NOTE | 2020-06-04 08:00 | NUR ---
Opening Shift Note Assumed care of patient, awake, alert and oriented X4. No S/S of distress/SOB, complains of right hand pain, 7/10, informed will medicate with prescribed pain medication. Left upper arm midline, patent and saline locked, dressing is clean, dry and intact. Right 3rd digit dressing clean, dry and intact. Right Achilles Tendon wound healed, no scab, just scar, left Achilles Tendon with scab intact, clean and dry, open to air. Guards X2 at bedside. Left wrist and bilateral ankles shackled to bed frame. Instructed on POC and to call for assist PRN, will continue to monitor for changes Q1hr and PRN.
[2020-06-04] MEDS: ENOXAPARIN SOD 40 MG/0.4 ML SYRINGE SC SCH (10:00)
--- NOTE | 2020-06-04 11:45 | NUR ---
ROUNDS Dr Zaragoza at bedside for rounds, new orders received and followed through. Patient updated on plan of care, verbalized understanding.
[2020-06-04 13:01] VITALS: BP 130/91
[2020-06-04 17:11] VITALS: BP 127/75
--- NOTE | 2020-06-04 19:45 | NUR ---
Opening Shift Note Assumed care of patient, AOx4. No S/S of distress/SOB. Fall and safety precautions in place. Guards at bedside. Call light within reach and able to use. Instructed on POC and to call for assist PRN, patient verbalized understanding and in agreement. Will continue to monitor for changes Q1hr and PRN.
--- NOTE | 2020-06-04 20:45 | NUR ---
IV insertion IV access obtained, via clean sterile technique by inserting 22 gauge catheter at left forearm on first attempt by Jeimy Mayo RN. IV secured properly. No trauma to site. Patient tolerated well.
--- NOTE | 2020-06-04 21:00 | NUR ---
MIDLINE REMOVAL MIDLINE OCCLUDED AND TENDER TO PATIENT. MIDLINE REMOVED AT THIS TIME WITH CATHETER FULLY INTACT. NO BLEEDING AT SITE. PATIENT EDUCATED TO MAINTAIN PRESSURE DRESSING TO PREVENT BLEEDING/BRUISING, PATIENT VERBALIZED UNDERSTANDING AND IN AGREEMENT. WILL CONTINUE TO MONITOR.
[2020-06-04 22:00] VITALS: BP 126/85
[2020-06-05] MEDS: HYDROcodone-ACET 10/325MG TAB PO PRN ×6 (01:32→22:11)
[2020-06-05] MEDS: VANCOMYCIN 1GM/250ML 250 ML IV SCH ×3 (01:32→20:27)
[2020-06-05] MEDS: PIPERACILLIN-TAZOB 3.375GM 100 ML IV SCH ×4 (02:50→22:10)
[2020-06-05 05:00] VITALS: BP 123/76
--- NOTE | 2020-06-05 08:00 | NUR ---
Opening Shift Note Assumed care of patient, awake, alert and oriented X4. No S/S of distress/SOB, complains of right third digit pain, 8/10, informed will medicate with prescribed pain medication. IV to left forearm, 22 gauge, patent and saline locked. Right 3rd digit dressing clean, dry and intact. Right Achilles Tendon wound healed, no scab, just scar, left Achilles Tendon with scab intact, clean and dry, open to air. Guards X2 at bedside. Left wrist and bilateral ankles shackled to bed frame. Instructed on POC and to call for assist PRN, will continue to monitor for changes Q1hr and PRN.
[2020-06-05 08:31] VITALS: BP 143/85
[2020-06-05] MEDS: ENOXAPARIN SOD 40 MG/0.4 ML SYRINGE SC SCH (10:00)
[2020-06-05 13:06] VITALS: BP 151/78
--- NOTE | 2020-06-05 15:30 | NUR ---
DRESSING CHANGE Dressing changed to right hand, 3rd digit, per wound care orders, patient tolerated without difficulty.
[2020-06-05 17:00] VITALS: BP 140/66
--- NOTE | 2020-06-05 19:22 | NUR ---
Care endorsed to COLTON Velez, night nurse.
[2020-06-05 21:00] VITALS: BP 128/80
[2020-06-06] MEDS: HYDROcodone-ACET 10/325MG TAB PO PRN ×5 (02:21→22:35)
[2020-06-06] MEDS: PIPERACILLIN-TAZOB 3.375GM 100 ML IV SCH ×4 (03:10→22:35)
[2020-06-06 05:00] VITALS: BP 108/74
[2020-06-06] MEDS: VANCOMYCIN 1GM/250ML 250 ML IV SCH ×3 (05:38→20:32)
--- NOTE | 2020-06-06 07:30 | NUR ---
Opening Shift Note Assumed care of patient, AOx4. No S/S of distress/SOB. Fall and safety precautions in place. Call light within reach and able to use. nursing home security at bedside, Instructed on POC and to call for assist PRN, patient verbalized understanding and in agreement. Will continue to monitor for changes Q1hr and PRN.
[2020-06-06 09:00] VITALS: BP 120/78
[2020-06-06] MEDS: ENOXAPARIN SOD 40 MG/0.4 ML SYRINGE SC SCH (11:21)
--- NOTE | 2020-06-06 11:25 | NUR ---
MD VISIT DR. BETHEA HERE TO SEE AND EXAMINED PATIENT
--- NOTE | 2020-06-06 12:38 | NUR ---
C/O MIDDLE FINGER PAIN,PATIENT MEDICATED WITH NORCO, SEE eMAR
--- NOTE | 2020-06-06 12:52 | NUR ---
Nutrition Followup Note Wt 103.9 kg Pt sleeping with guards by bedside. pt with no distress noted currently on regular diet with adequate PO of 100% per RN note Est Energy needs: 8010-3929 kcals (20-23 kcal/kgBW), Est Protein needs: 80-99 gms/day (0.8-1.0 gm/kgBW). Will continue to monitor and reassess prn. labs: Na 133L, BUN 19H, GLUC 345H, Alb 3.9 WNL BM: Pt with 1 BM today per RN note Skin: BS 21 low risk, wound on hand, full details in palliative care nurse note PES: 1) Overweight r/t energy intake in excess of energy needs aeb 115% IBW and BMI of 28.2 kg/m2 2) Altered nutrition related lab values r/t current medical condition aeb hyperglycemia Comments Will continue to monitor PO status, skin status, pertinent labs and weight trends. Will f/u in 5-7 days. 1) consider CCHO 75 gm as pt with hx of DM. 2) consider MVI/C bid. 3) Continue current plan of care
[2020-06-06 13:00] VITALS: BP 125/90
--- NOTE | 2020-06-06 13:20 | NUR ---
VANCO THROUGH LEVEL STILL PENDING
--- NOTE | 2020-06-06 15:45 | NUR ---
WOUND CARE TO RIGHT MIDDLE FINGER DONE
[2020-06-06 17:00] VITALS: BP 137/91
--- NOTE | 2020-06-06 18:13 | NUR ---
C/O PAIN TO RIGHT MIDDLE FINGER,MEDICATED WITH NORCO,SEE eMAR
--- NOTE | 2020-06-06 19:16 | NUR ---
Opening Shift Note Assumed care of patient, awake, alert and oriented x4, on room air with even and unlabored respirations, no S/S of distress/SOB or pain. Patient able to ambulate independently, bed in lowest locked position, side rails up x2, call light within reach, and guards at bedside. Instructed on POC and to call for assist PRN, will continue to monitor for changes Q1hr and PRN.
[2020-06-06 22:00] VITALS: BP 130/84
[2020-06-07] MEDS: PIPERACILLIN-TAZOB 3.375GM 100 ML IV SCH ×4 (03:30→22:17)
[2020-06-07 05:00] VITALS: BP 113/87
[2020-06-07] MEDS: HYDROcodone-ACET 10/325MG TAB PO PRN ×5 (05:31→22:17)
[2020-06-07] MEDS: VANCOMYCIN 1GM/250ML 250 ML IV SCH ×3 (05:31→20:53)
--- NOTE | 2020-06-07 07:30 | NUR ---
Opening Shift Note Report received,assumed care of patient. AOx4. No S/S of distress/SOB. Fall and safety precautions in place. Call light within reach and able to use. Instructed on POC and to call for assist PRN,Guard at bedside,shackles to both feet and right arm in place.patient verbalized understanding Will continue to monitor for changes Q1hr and PRN.
[2020-06-07 09:31] VITALS: BP 126/77
[2020-06-07] MEDS: ENOXAPARIN SOD 40 MG/0.4 ML SYRINGE SC SCH (10:59)
--- NOTE | 2020-06-07 11:10 | NUR ---
c/o right middle finger pain,medicated with [place] see eMAR
[2020-06-07 11:42] LABS: Basophils # (auto) 0.1 10 ^3/uL (0-0.2); Basophils % (auto) 1.2 % (0.0-2.0); Eosinophils # (auto) 0.3 10 ^3/uL (0-0.8); Eosinophils % (auto) 4.9 % (0.0-7.0); Hematocrit 47.8 % (41.0-53.0); Hemoglobin 16.5 g/dL (13.5-17.5); Lymphocytes # (auto) 1.8 10 ^3/uL (0.4-5.4); Lymphocytes % (auto) 28.3 % (10.0-50.0); Mean Corpuscular Hemoglobin 29.4 pg (28.0-32.0); Mean Corpuscular Hgb Conc. 34.5 g/dL (32.0-36.0); Mean Corpuscular Volume 85.1 fL (80.0-100.0); Monocytes # (auto) 0.6 10 ^3/uL (0-1.3); Monocytes % (auto) 9.8 % (0.0-12.0); Neutrophils # (auto) 3.6 10 ^3/uL (1.6-8.6); Neutrophils % (auto) 55.8 % (37.0-80.0); Nucleated Red Blood Cells % 0.2 %; Platelet Count (auto) 201 10^3/uL (140-450); Red Blood Cells 5.62 10^6/uL (4.5-5.90); Red Cell Distribution Width 13.2 % (11.8-14.3); White Blood Cell 6.5 10^3/uL (4.4-10.8)
[2020-06-07 13:00] VITALS: BP 143/79
--- NOTE | 2020-06-07 17:12 | NUR ---
c/o right middle finger pain 04/04,medicated with [place] 10/325 1 tablet po see eMAR for detail
--- NOTE | 2020-06-07 17:15 | NUR ---
Dressing changed to right middle finger
[2020-06-07 17:33] VITALS: BP 129/80
--- NOTE | 2020-06-07 18:35 | NUR ---
STATUS UNCHANGED NO DISTRESS,NO DISCOMFORT.
--- NOTE | 2020-06-07 19:20 | NUR ---
OPENING NOTE Received report from day shift RN. Patient is A&O X's 4 with no s/s of distress and reports no pain at this time. Right finger dressing C/D/I. patient denies any numbness/ tingling. Sensation intact. Educated patient on POC and to use call light when in need of assistance. Patient verbalized understanding. Bed is in lowest/locked position with side rails up X's 2 and call light is within reach of patient. Guards present at bedside. Provided patient with water at this time. Will continue care.
[2020-06-07 22:00] VITALS: BP 124/88
[2020-06-08] MEDS: HYDROcodone-ACET 10/325MG TAB PO PRN ×4 (01:11→19:35)
[2020-06-08] MEDS: PIPERACILLIN-TAZOB 3.375GM 100 ML IV SCH ×4 (03:38→21:46)
[2020-06-08] MEDS: VANCOMYCIN 1GM/250ML 250 ML IV SCH ×3 (04:58→20:46)
[2020-06-08 05:00] VITALS: BP 124/79
--- NOTE | 2020-06-08 07:24 | NUR ---
end of shift gave report to day shift RN. Will endorse care.Patient resting with no s/s of distress.
--- NOTE | 2020-06-08 07:30 | NUR ---
Assumed care of Pt. He is resting comfortably in bed, having breakfast. Denies pain at this time. Security guards by bedside.
[2020-06-08 09:00] VITALS: BP 135/82
[2020-06-08] MEDS: ENOXAPARIN SOD 40 MG/0.4 ML SYRINGE SC SCH (10:07)
[2020-06-08 13:00] VITALS: BP 125/70
[2020-06-08 17:00] VITALS: BP 128/88
--- NOTE | 2020-06-08 17:05 | NUR ---
Pt.'s dressing was changed. Stitches were cleansed with sterile water and gauze. Vaseline gauze was applied and kerlix wrapped around finger. Pt. tolerated well.
--- NOTE | 2020-06-08 18:42 | NUR ---
Pt. is resting comfortably in bed. Denies pain at this time. Bed is on lowest position, security guards by bedside. Call light within reach.
--- NOTE | 2020-06-08 19:30 | NUR ---
Opening Shift Note Assumed care of patient, awake and alert. Reported pain. Pain med will be given. Instructed on POC and to call for assist PRN, will continue to monitor for changes Q1hr and PRN.
[2020-06-08 22:00] VITALS: BP 134/89
--- NOTE | 2020-06-08 22:15 | NUR ---
IV insertion IV access obtained, via clean sterile technique by inserting 22 gauge catheter at left FA after 1 attempt(s). IV secured properly. No trauma to site. Patient tolerated procedure well. IV removal previous IV DC'd with sterile technique, catheter fully intact. Pressure dressing applied to site. Patient tolerated procedure well.
[2020-06-09] MEDS: HYDROcodone-ACET 10/325MG TAB PO PRN ×5 (02:07→22:16)
[2020-06-09] MEDS: VANCOMYCIN 1GM/250ML 250 ML IV SCH ×3 (04:34→20:46)
[2020-06-09] MEDS: PIPERACILLIN-TAZOB 3.375GM 100 ML IV SCH ×4 (04:39→21:57)
[2020-06-09 05:00] VITALS: BP 108/73
--- NOTE | 2020-06-09 09:11 | NUR ---
Assumed care of Pt. He is resting comfortably in bed, requesting pain medication. He was medicated. Bed in lowest position, guards by bedside.
[2020-06-09 09:20] VITALS: BP 122/78
[2020-06-09] MEDS: ENOXAPARIN SOD 40 MG/0.4 ML SYRINGE SC SCH (10:00)
--- NOTE | 2020-06-09 10:45 | NUR ---
Assumed care of patient Received report from COLTON Robles. Patient is awake, alert and oriented x4. No signs or symptoms of distress noted at this time. Reviewed plan of care with patient, patient verbalized understanding. Bed in low and locked position, call light within reach. Will continue to monitor Q1 hour and PRN. Two guards at bedside.
--- NOTE | 2020-06-09 12:50 | NUR ---
Pain Patient complains of pain 8/10 to right hand and is requesting NORCO. Will medicate per orders. Will continue to monitor Q1 hour and PRN.
[2020-06-09 13:00] VITALS: BP 133/82
[2020-06-09 17:45] VITALS: BP 126/83
--- NOTE | 2020-06-09 19:15 | NUR ---
Closing Note Report given to circuit designer RN. No signs or symptoms of distress noted at this time.
[2020-06-09 22:00] VITALS: BP 133/81
[2020-06-10] MEDS: HYDROcodone-ACET 10/325MG TAB PO PRN ×3 (02:12→14:22)
[2020-06-10] MEDS: VANCOMYCIN 1GM/250ML 250 ML IV SCH ×3 (04:48→20:48)
[2020-06-10] MEDS: PIPERACILLIN-TAZOB 3.375GM 100 ML IV SCH ×4 (04:50→22:08)
[2020-06-10 05:00] VITALS: BP 126/81
--- NOTE | 2020-06-10 07:36 | NUR ---
endorsed care to day RN, no sign of distress/pain at this time
[2020-06-10 09:03] VITALS: BP 125/93
[2020-06-10] MEDS: ENOXAPARIN SOD 40 MG/0.4 ML SYRINGE SC SCH (10:02)
--- NOTE | 2020-06-10 10:10 | NUR ---
RE:Suture removal Dr. Bermeo paged through exchange system to clarify suture removal. Per Lopez at [facility], Dr. Baer will be in to see patient sometime this morning, sutures to remain in place until MD sees patient. Per Lopez detailed message with patient information was delivered to
--- NOTE | 2020-06-10 12:35 | NUR ---
Dr. Bermeo at bed side for suture removal. Patient tolerated well. New orders received, read back and verified. Refer to order hx.
[2020-06-10 12:40] VITALS: BP 128/87
[2020-06-10 17:03] VITALS: BP 120/80
[2020-06-10] MEDS: IBUPROFEN 800 MG TAB PO PRN (20:07)
[2020-06-10 22:00] VITALS: BP 124/75
[2020-06-11] MEDS: PIPERACILLIN-TAZOB 3.375GM 100 ML IV SCH ×4 (03:52→22:05)
[2020-06-11 05:00] VITALS: BP 131/78
[2020-06-11 05:23] LABS: Basophils # (auto) 0.1 10 ^3/uL (0-0.2); Basophils % (auto) 1.2 % (0.0-2.0); Eosinophils # (auto) 0.4 10 ^3/uL (0-0.8); Eosinophils % (auto) 7.4 % (0.0-7.0); Hematocrit 46.2 % (41.0-53.0); Hemoglobin 15.6 g/dL (13.5-17.5); Lymphocytes # (auto) 2.4 10 ^3/uL (0.4-5.4); Lymphocytes % (auto) 44.8 % (10.0-50.0); Mean Corpuscular Hemoglobin 28.6 pg (28.0-32.0); Mean Corpuscular Hgb Conc. 33.7 g/dL (32.0-36.0); Mean Corpuscular Volume 84.8 fL (80.0-100.0); Monocytes # (auto) 0.5 10 ^3/uL (0-1.3); Neutrophils # (auto) 1.9 10 ^3/uL (1.6-8.6); Neutrophils % (auto) 36.6 % (37.0-80.0); Nucleated Red Blood Cells % 0.1 %; Platelet Count (auto) 202 10^3/uL (140-450); Red Blood Cells 5.45 10^6/uL (4.5-5.90); White Blood Cell 5.3 10^3/uL (4.4-10.8)
[2020-06-11 05:43] LABS: Potassium 4.1 mmol/L (3.5-5.1)
[2020-06-11 05:46] LABS: BUN/Creatinine Ratio 19.2
[2020-06-11] MEDS: VANCOMYCIN 1GM/250ML 250 ML IV SCH ×3 (06:07→23:03)
--- NOTE | 2020-06-11 07:18 | NUR ---
Report given to Gregg Unger, patient is resting no distress.
[2020-06-11 09:00] VITALS: BP 121/92
[2020-06-11] MEDS: ENOXAPARIN SOD 40 MG/0.4 ML SYRINGE SC SCH (09:20)
[2020-06-11] MEDS: HYDROcodone-ACET 10/325MG TAB PO PRN ×3 (09:25→22:06)
[2020-06-11 13:00] VITALS: BP 115/89
--- NOTE | 2020-06-11 14:37 | NUR ---
Nutrition Followup Note Wt 103.1 kg Pt ambulating with guards when rounded this morning. Pt is with a Regular diet with adequate PO of 100% per RN note. Est Energy needs: 4718-9409 kcals (20-23 kcal/kgBW), Est Protein needs: 80-99 gms/day (0.8-1.0 gm/kgBW). Will continue to monitor and reassess prn. Labs: BUN 19 H, GLUC 323 H BM: Pt with 1 BM today per RN note Skin: BS 21 low risk, wound on hand, full details in child care counselor note PES: 1) Overweight r/t energy intake in excess of energy needs aeb 115% IBW and BMI of 28.2 kg/m2 2) Altered nutrition related lab values r/t current medical condition aeb hyperglycemia Comments Will continue to monitor PO status, skin status, pertinent labs and weight trends. Will f/u in 5-7 days. 1) Consider CCHO 75 gm as pt with hx of DM. 2) consider MVI/C bid. 3) Continue current plan of care
--- NOTE | 2020-06-11 15:27 | NUR ---
PT WORKED AT BEDSIDE THER EX FOR R HAND/WRIST AND FINGERS. PT STATES PAIN LEVEL IS 6/10. PT WORKED ON WRIST EXT/FLEX, RD AND UD USING 1# WEIGHT X 15 REPS, FOLLOWED BY RED THERABAR X 15 REPS FOR WRIST EXT/FLEX/PRON/SUP THEN USED GREEN THERA HANDHOLE MACHINE OPERATOR X 15 REPS WHILE R HAND WAS IN PALM UP, DOWN, THUMB UP PT RECD GENTLE JOINT MOBS ALL DIGITS MOSTLY FOCUSING ON 3RD DIGIT PIP JOINT. PT DEMO'D MODERATE SWELLING ALONG W/ INCREASED PAIN AND DISCOMFORT WITH MOBILITY. PT ALSO RECD MANUAL WRIST STRETCHES FOR FLEXION AND EXTENSION 5 REPS HOLDING FOR 10 SECONDS EACH. Addendum: 06/11/20 at 1530 by Dayana Reynolds PT Amended: Links added.
[2020-06-11 17:00] VITALS: BP 132/86
--- NOTE | 2020-06-11 21:57 | NUR ---
Medication pass delayed due to code assist on unit. Called outside pharmacy, spoke with [facility] regarding ordered Vancomycin. Per Heaven, give ordered Zosyn over thirty minutes, then administer Vancomycin. Will administer and continue to monitor.
[2020-06-11 22:00] VITALS: BP 127/83
[2020-06-12] MEDS: PIPERACILLIN-TAZOB 3.375GM 100 ML IV SCH ×4 (04:28→23:00)
[2020-06-12 05:00] VITALS: BP 115/75
[2020-06-12] MEDS: VANCOMYCIN 1GM/250ML 250 ML IV SCH ×3 (05:40→21:30)
--- NOTE | 2020-06-12 06:42 | NUR ---
Closing Note Patient lying in bed, eyes closed, respirations even and unlabored, appears asleep. No s/s of distress. Call light within reach. Guards at bedside. Will endorse care to dayshift RN.
--- NOTE | 2020-06-12 07:30 | NUR ---
Opening Shift Note Assumed care of patient, awake and alert. No S/S of distress/SOB or pain. Instructed on POC and to call for assist PRN, will continue to monitor for changes Q1hr and PRN. Bed in low and locked position, rails up x2, no-slip socks on. Guards at bedside.
[2020-06-12] MEDS: HYDROcodone-ACET 10/325MG TAB PO PRN ×3 (08:25→18:41)
[2020-06-12 09:00] VITALS: BP 129/85
--- NOTE | 2020-06-12 10:20 | NUR ---
IV insertion/IV removal IV access obtained, via clean sterile technique by inserting 22 gauge catheter at left forearm after 2 attempts. IV secured properly. No trauma to site. Patient tolerated well. IV DC'd with clean sterile technique to old IV due to pain and tenderness at site, catheter fully intact. Pressure dressing applied to site. Patient tolerated well.
[2020-06-12] MEDS: ENOXAPARIN SOD 40 MG/0.4 ML SYRINGE SC SCH (10:54)
--- NOTE | 2020-06-12 11:00 | NUR ---
PATIENT REQUESTING TO SHOWER SUPPLIES PROVIDED, PATIENT INSTRUCTED ON SAFETY PRECAUTIONS WHILE SHOWERING, VERBALIZES UNDERSTANDING.
[2020-06-12 13:00] VITALS: BP 124/77
[2020-06-12 17:11] VITALS: BP 147/84
[2020-06-12 22:00] VITALS: BP 129/78
[2020-06-13] MEDS: HYDROcodone-ACET 10/325MG TAB PO PRN ×4 (02:33→19:38)
[2020-06-13] MEDS: PIPERACILLIN-TAZOB 3.375GM 100 ML IV SCH ×4 (04:00→22:00)
[2020-06-13 05:00] VITALS: BP 140/95
[2020-06-13] MEDS: VANCOMYCIN 1GM/250ML 250 ML IV SCH ×3 (05:30→20:30)
--- NOTE | 2020-06-13 06:58 | NUR ---
Closing Note Patient lying in bed, eyes closed, respirations even and unlabored, appears asleep. Patient awakens to name and touch. No s/s of distress. Call light within reach. Guards at bedside. Will endorse care to dayshift RN.
--- NOTE | 2020-06-13 07:30 | NUR ---
opening note Assumed care of patient from NOC RN. Patient is AOx4, no s/s of distress noted. Bed is in lowest locked position, side rails up x2 and call light is within reach. Updated patient on plan of care and patient verbalized understanding. Will continue to monitor q1hr and PRN.
[2020-06-13 08:00] VITALS: BP 130/87
[2020-06-13] MEDS: ENOXAPARIN SOD 40 MG/0.4 ML SYRINGE SC SCH (10:02)
--- NOTE | 2020-06-13 10:03 | NUR ---
physician rounding Dr. Banuelos at bedside. MD updated patient on plan of care, no new orders received. Will continue care.
[2020-06-13 12:00] VITALS: BP 118/73
[2020-06-13 16:57] VITALS: BP 142/87
--- NOTE | 2020-06-13 19:07 | NUR ---
end of shift note endorsed care to noc rn. No s/s of distress noted.
--- NOTE | 2020-06-13 19:40 | NUR ---
Opening Shift Note Assumed care of patient, awake and alert. No S/S of distress/SOB . Instructed on POC and to call for assist PRN, will continue to monitor for changes Q1hr and PRN.PAIN 03/04 PATIENT MEDICATED WITH NORCO
--- NOTE | 2020-06-13 19:52 | NUR ---
Opening Shift Note Assumed care of patient, awake and alert. No S/S of distress/SO. Instructed on POC and to call for assist PRN, will continue to monitor for changes Q1hr and PRN.PAIN LEVEL 7/10 NORCO ADMINISTERED.
[2020-06-13 22:00] VITALS: BP 128/76
[2020-06-14] MEDS: PIPERACILLIN-TAZOB 3.375GM 100 ML IV SCH ×4 (03:35→22:00)
[2020-06-14 05:00] VITALS: BP 126/81
[2020-06-14] MEDS: VANCOMYCIN 1GM/250ML 250 ML IV SCH ×3 (05:03→21:00)
[2020-06-14] MEDS: HYDROcodone-ACET 10/325MG TAB PO PRN ×4 (06:45→22:45)
--- NOTE | 2020-06-14 07:30 | NUR ---
opening note Assumed care of patient from NOC RN. Patient is AOx4, no s/s of distress noted. Bed is in lowest locked position, side rails up x2, 4 guards present at bedside and call light is within reach. Updated patient on plan of care and patient verbalized understanding. Will continue to monitor q1hr and PRN.
[2020-06-14 08:00] VITALS: BP 117/81
[2020-06-14 08:24] LABS: Calcium 9.1 mg/dL (8.5-10.1)
[2020-06-14] MEDS: ENOXAPARIN SOD 40 MG/0.4 ML SYRINGE SC SCH (10:54)
[2020-06-14 12:00] VITALS: BP 119/81
[2020-06-14 17:00] VITALS: BP 130/80
[2020-06-14 21:30] VITALS: BP 129/72
[2020-06-15] MEDS: PIPERACILLIN-TAZOB 3.375GM 100 ML IV SCH ×4 (03:36→22:39)
[2020-06-15] MEDS: HYDROcodone-ACET 10/325MG TAB PO PRN ×4 (04:00→20:53)
[2020-06-15 04:30] VITALS: BP 120/72
[2020-06-15] MEDS: VANCOMYCIN 1GM/250ML 250 ML IV SCH ×3 (05:09→20:38)
[2020-06-15 06:14] LABS: Basophils # (auto) 0 10 ^3/uL (0-0.2); Basophils % (auto) 0.6 % (0.0-2.0); Eosinophils # (auto) 0.4 10 ^3/uL (0-0.8); Eosinophils % (auto) 6.8 % (0.0-7.0); Hematocrit 41.7 % (41.0-53.0); Hemoglobin 13.8 g/dL (13.5-17.5); Lymphocytes # (auto) 2.2 10 ^3/uL (0.4-5.4); Lymphocytes % (auto) 41.9 % (10.0-50.0); Mean Corpuscular Hemoglobin 29.2 pg (28.0-32.0); Mean Corpuscular Hgb Conc. 33.1 g/dL (32.0-36.0); Mean Corpuscular Volume 88.2 fL (80.0-100.0); Monocytes # (auto) 0.6 10 ^3/uL (0-1.3); Monocytes % (auto) 10.7 % (0.0-12.0); Neutrophils # (auto) 2.1 10 ^3/uL (1.6-8.6); Nucleated Red Blood Cells % 0.1 %; Platelet Count (auto) 162 10^3/uL (140-450); Red Blood Cells 4.73 10^6/uL (4.5-5.90); Red Cell Distribution Width 12.7 % (11.8-14.3); White Blood Cell 5.3 10^3/uL (4.4-10.8)
--- NOTE | 2020-06-15 07:40 | NUR ---
Opening Shift Note Assumed care of patient, awake and alert. Respirations are even and non labored on room air. No S/S of distress/SOB or pain. Bed is in the lowest and locked position with side rails up x 2, call light within reach and guards x 2 at bedside. Instructed on POC and to call for assist PRN, will continue to monitor for changes Q1hr and PRN.
[2020-06-15 09:00] VITALS: BP 127/90
[2020-06-15] MEDS: ENOXAPARIN SOD 40 MG/0.4 ML SYRINGE SC SCH (10:00)
[2020-06-15 13:00] VITALS: BP 125/76
[2020-06-15 16:53] VITALS: BP 121/77
--- NOTE | 2020-06-15 19:40 | NUR ---
Opening Shift Note Patient is AOx4 and is awake watching TV. Patient bed locked in lowest position. No s/s of distress or SOB. Patient has pain and told he is not due for pain medications. Patient verbally agreed to understanding and said "okay." Hand has some mild swelling and warmer to touch in comparison to left hand. Scar from previous surgery on right middle finger noted and also swollen. esperanza noted on right upper hand. No other concerns. Will continue to monitor.
[2020-06-15 21:34] VITALS: BP 127/75
[2020-06-16] MEDS: PIPERACILLIN-TAZOB 3.375GM 100 ML IV SCH ×4 (03:34→21:21)
--- NOTE | 2020-06-16 04:45 | NUR ---
Lab Contacted Trough draw for Vancomycin has not yet been drawn. Lab contacted, they are in the middle of shift change and will be up as soon as they can. Outside pharmacy notified that lab draw for trough may take longer than expected. Spoke with Manjit from outside pharmacy. Manjit said to contact him when results of trough come in. Medication time may need to be adjusted.
[2020-06-16 04:59] VITALS: BP 116/76
--- NOTE | 2020-06-16 05:10 | NUR ---
Lab Here to Draw Trough level
--- NOTE | 2020-06-16 06:24 | NUR ---
Pharmacy Notified about Trough level 12.6 Pharmacy notified to reschedule vancomycin timing due to trough level not ran until now; also notified trough level is below 20.
[2020-06-16] MEDS: VANCOMYCIN 1GM/250ML 250 ML IV SCH ×3 (06:50→23:25)
--- NOTE | 2020-06-16 07:30 | NUR ---
Opening Shift Note Assumed care of patient, awake and alert. Respirations are even and non labored on room air. No S/S of distress/SOB or pain reported. Bed is in the lowest and locked position with side rails up x 2, call light within reach and guards x 2 at bedside. Instructed on POC and to call for assist PRN, will continue to monitor for changes Q1hr and PRN.
[2020-06-16 08:35] VITALS: BP 127/74
[2020-06-16] MEDS: ENOXAPARIN SOD 40 MG/0.4 ML SYRINGE SC SCH (10:00)
[2020-06-16] MEDS: HYDROcodone-ACET 10/325MG TAB PO PRN ×2 (10:10→15:49)
--- NOTE | 2020-06-16 11:48 | NUR ---
Nutrition Followup Note Wt 102.5 kg Pt was asleep with guards at bedside at time of rounds. Pt is still with a Regular diet with adequate PO of 100% per RN note. Pt would benefit from a CCHO diet Est Energy needs: 5654-8259 kcals (20-23 kcal/kgBW), Est Protein needs: 80-99 gms/day (0.8-1.0 gm/kgBW). Will continue to monitor and reassess prn. Labs: BUN 19 H, GLUC 314 H, Alb 3.9 WNL BM: Pt with 1 BM today per RN note Skin: BS 19 low risk, wound on hand, full details in healthcare science specialist note PES: 1) Overweight r/t energy intake in excess of energy needs aeb 115% IBW and BMI of 28.2 kg/m2 2) Altered nutrition related lab values r/t current medical condition aeb hyperglycemia Comments Will continue to monitor PO status, skin status, pertinent labs and weight trends. Will f/u in 5-7 days. 1) Consider CCHO 75 gm as pt with hx of DM. 2) consider MVI/C bid. 3) Continue current plan of care
[2020-06-16 12:39] VITALS: BP 117/71
[2020-06-16 16:34] VITALS: BP 132/76
--- NOTE | 2020-06-16 19:25 | NUR ---
RECEIVED PATIENT FROM DAY SHIFT RN. PATIENT RESTING IN BED. NO S/S OF DISTRESS NOTED. C/O PAIN @ 8/10 ON HIS HAND BUT NO PAIN MEDICATION REQUESTED AT THIS TIME. PATIENT UNDERSTOOD HE COULD CALL FOR PAIN MEDICATION IF HE COULD NOT TOLERATE THE PAIN. POC INSTRUCTED AND ENCOURAGED PATIENT TO CALL FOR LEAF STRIPPER IF NEEDED. BED IN LOWEST POSITION WITH SIDE RAILS UP X 2. CALL PETIT WITHIN REACH. GUARDS AT BEDSIDE. CONTINUE TO MONITOR FOR CHANGES Q1H AND PRN.
[2020-06-16 22:00] VITALS: BP 115/71
[2020-06-17] MEDS: HYDROcodone-ACET 10/325MG TAB PO PRN ×5 (01:34→23:52)
--- NOTE | 2020-06-17 01:35 | NUR ---
PATIENT C/O PAIN @ 05/05, MEDICATED ORDERED. CONTINUE TO MONITOR.
[2020-06-17] MEDS: PIPERACILLIN-TAZOB 3.375GM 100 ML IV SCH ×5 (03:35→21:25)
[2020-06-17 05:00] VITALS: BP 104/74
[2020-06-17] MEDS: VANCOMYCIN 1GM/250ML 250 ML IV SCH ×3 (06:32→23:18)
[2020-06-17 08:35] VITALS: BP 121/76
[2020-06-17] MEDS: ENOXAPARIN SOD 40 MG/0.4 ML SYRINGE SC SCH (10:28)
[2020-06-17 12:48] VITALS: BP 112/70
[2020-06-17 17:05] VITALS: BP 126/82
--- NOTE | 2020-06-17 19:52 | NUR ---
RECEIVED PATIENT FROM DAY SHIFT RN. PATIENT RESTING IN BED. NO S/S OF DISTRESS NOTED. C/O PAIN @ 8/10 ON HIS HAND, MEDICATED PATIENT ORDERED. POC INSTRUCTED AND ENCOURAGED PATIENT TO CALL FOR BOILERMAKER FITTER IF NEEDED. BED IN LOWEST POSITION WITH SIDE RAILS UP X 2. CALL PETIT WITHIN REACH. GUARDS AT BEDSIDE. CONTINUE TO MONITOR FOR CHANGES Q1H AND PRN.
[2020-06-17 22:00] VITALS: BP 118/78
--- NOTE | 2020-06-18 00:39 | NUR ---
IV insertion IV access obtained, via clean sterile technique by inserting [22] gauge catheter at [LFA] after [1] attempt(s). IV secured properly. No trauma to site. Patient tolerated well. PATIENT C/O IV SITE PAIN, IV removal IV DC'd with clean sterile technique, catheter fully intact. Pressure dressing applied to site. Patient tolerated well. NOTE:
--- NOTE | 2020-06-18 02:07 | NUR ---
PATIENT SLEEPING. NO S/S OF DISTRESS AND PAIN NOTED. CONTINUE TO MONITOR.
[2020-06-18] MEDS: PIPERACILLIN-TAZOB 3.375GM 100 ML IV SCH ×4 (03:30→22:04)
[2020-06-18 05:00] VITALS: BP 112/78
[2020-06-18] MEDS: VANCOMYCIN 1GM/250ML 250 ML IV SCH ×3 (06:40→23:11)
[2020-06-18 09:00] VITALS: BP 121/76
[2020-06-18] MEDS: ENOXAPARIN SOD 40 MG/0.4 ML SYRINGE SC SCH (09:37)
[2020-06-18] MEDS: HYDROcodone-ACET 10/325MG TAB PO PRN ×2 (09:38→22:04)
[2020-06-18 13:00] VITALS: BP 117/74
[2020-06-18 16:26] VITALS: BP 130/90
--- NOTE | 2020-06-18 20:00 | NUR ---
Opening Shift Note Assumed care of patient, awake and alert. No S/S of distress/SOB. Instructed on POC and to call for assist PRN. Bed is in lowest locked position with bed rails up x2 and call light is within reach of the patient. Guards at the bedside.
[2020-06-18 22:15] VITALS: BP 125/85
[2020-06-19] MEDS: PIPERACILLIN-TAZOB 3.375GM 100 ML IV SCH ×4 (04:29→22:10)
[2020-06-19 05:14] VITALS: BP 126/76
--- NOTE | 2020-06-19 07:19 | NUR ---
Closing note: Vanco trough still pending. Notified day shift RN that 0700 vanco dose not given yet due to late vanco trough. Patient resting in bed with breaths even and unlabored. Care endorsed to day shift RN
[2020-06-19 07:50] LABS: BUN/Creatinine Ratio 20.2; Calcium 9.2 mg/dL (8.5-10.1)
[2020-06-19] MEDS: VANCOMYCIN 1GM/250ML 250 ML IV SCH ×3 (08:27→23:01)
[2020-06-19 08:47] VITALS: BP 114/79
[2020-06-19] MEDS: ENOXAPARIN SOD 40 MG/0.4 ML SYRINGE SC SCH (10:03)
[2020-06-19] MEDS: HYDROcodone-ACET 10/325MG TAB PO PRN ×3 (10:03→23:13)
[2020-06-19 13:00] VITALS: BP 120/70
[2020-06-19 16:42] VITALS: BP 130/79
--- NOTE | 2020-06-19 19:45 | NUR ---
Opening Shift Note Assumed care of patient, awake and alert x4. No S/S of distress/SOB or pain. Call light is within reach, side rails up x2, bed is in the lowest position. Instructed on POC and to call for assist PRN. Guards are at bedside for safety. Will continue to monitor for changes Q1hr and PRN.
[2020-06-19 22:16] VITALS: BP 121/77
[2020-06-20] MEDS: PIPERACILLIN-TAZOB 3.375GM 100 ML IV SCH ×3 (03:58→16:55)
[2020-06-20 05:59] VITALS: BP 136/92
[2020-06-20] MEDS: VANCOMYCIN 1GM/250ML 250 ML IV SCH ×3 (06:49→22:55)
[2020-06-20 09:00] VITALS: BP 133/90
[2020-06-20] MEDS: HYDROcodone-ACET 10/325MG TAB PO PRN ×3 (09:56→21:12)
[2020-06-20 13:00] VITALS: BP 128/80
[2020-06-20] MEDS: ENOXAPARIN SOD 40 MG/0.4 ML SYRINGE SC SCH (15:02)
[2020-06-20 17:00] VITALS: BP 130/87
--- NOTE | 2020-06-20 20:00 | NUR ---
assumed care, pt. awake, guards at bedside, not in distress.
[2020-06-20 22:00] VITALS: BP 123/80
[2020-06-21] MEDS: PIPERACILLIN-TAZOB 3.375GM 100 ML IV SCH ×4 (00:10→17:47)
[2020-06-21] MEDS: VANCOMYCIN 1GM/250ML 250 ML IV SCH ×3 (06:57→22:50)
--- NOTE | 2020-06-21 07:30 | NUR ---
RECEIVED REPORT FROM NIGHT NURSE. PATIENT RESTING IN BED, NO DISTRESS NOTED. TWO GUARDS AT BEDSIDE. HANDCUFF TO LEFT WRIST, NO REDNESS NOTED. SHACKLES TO BILATERAL ANKLES, NO REDNESS NOTED. WILL CONTINUE TO MONITOR.
[2020-06-21 08:27] VITALS: BP 127/84
[2020-06-21] MEDS: ENOXAPARIN SOD 40 MG/0.4 ML SYRINGE SC SCH (08:31)
[2020-06-21] MEDS: HYDROcodone-ACET 10/325MG TAB PO PRN ×2 (08:31→15:48)
[2020-06-21 12:26] VITALS: BP 134/76
--- NOTE | 2020-06-21 14:51 | NUR ---
Nutrition Followup Note Wt 104.7 kg Pt was asleep with guards at bedside at time of rounds. Pt is still with a Regular diet with adequate PO of 100% per RN note. Pt would benefit from a CCHO diet. Est Energy needs: 3489-0804 kcals (20-23 kcal/kgBW), Est Protein needs: 80-99 gms/day (0.8-1.0 gm/kgBW). Will continue to monitor and reassess prn. Labs: GLUC 312H BM: Pt with 1 BM today per RN note Skin: BS 22 low risk, wound on hand, full details in hourly caregiver note PES: 1) Overweight r/t energy intake in excess of energy needs aeb 115% IBW and BMI of 28.2 kg/m2 2) Altered nutrition related lab values r/t current medical condition aeb hyperglycemia Comments Will continue to monitor PO status, skin status, pertinent labs and weight trends. Will f/u in 5-7 days. 1) Consider CCHO 75 gm as pt with hx of DM. 2) consider MVI/C bid. 3) Continue current plan of care
[2020-06-21 16:18] VITALS: BP 133/89
--- NOTE | 2020-06-21 19:46 | NUR ---
Opening Shift Note Assumed care of patient after receiving report. Patient is awake and alert with no S/S of distress/SOB or pain. Call light within reach, HOB semi fowlers, bed in lowest locked position x2 side rails, guards at bedside. Instructed on POC and to call for assist PRN, will continue to monitor for changes Q1hr and PRN.
[2020-06-21 22:00] VITALS: BP 118/76
[2020-06-22] MEDS: PIPERACILLIN-TAZOB 3.375GM 100 ML IV SCH ×4 (00:47→17:50)
[2020-06-22 05:00] VITALS: BP 108/70
[2020-06-22] MEDS: VANCOMYCIN 1GM/250ML 250 ML IV SCH ×2 (06:39→14:16)
--- NOTE | 2020-06-22 07:50 | NUR ---
Opening Note Assumed pt care from NOC RN. Pt is a/ox4 with no s/s of distress. Pt is currently sitting upright in bed with mild c/o pain to R hand, 02/02, discussed available pain medication. Discussed POC with pt; pt verbalized understanding. Safety measures maintained with call light within reach, bed in lowest position and side rails up. Will continue to monitor for changes.
[2020-06-22] MEDS: HYDROcodone-ACET 10/325MG TAB PO PRN (08:50)
[2020-06-22] MEDS: ENOXAPARIN SOD 40 MG/0.4 ML SYRINGE SC SCH (08:50)
[2020-06-22 09:00] VITALS: BP 127/77
[2020-06-22 13:00] VITALS: BP 123/76
[2020-06-22 17:00] VITALS: BP 121/79
[2020-06-22] MEDS ORDERED: LEVO-28 PO (17:47)
[2020-06-22] MEDS: IBUPROFEN 800 MG TAB PO PRN (17:54)
[2020-06-22 18:06] VITALS: BP 121/79
--- NOTE | 2020-06-22 18:30 | NUR ---
IV D/C and D/C Paperwork Provided IV to pt's L FA removed fully intact. Site is asymptomatic. Pressure dressing was applied to site. Paperwork was provided to guards. All questions were answered. Education provided to patient.
== END 2020-06-22 18:34 | DRG 513 ==
LOC: EEVIPCON 19:47 → ER 19:47 → OVERFLOW 19:48 → EAST 05-11 06:05 → CENTRAL 05-11 18:14 → WEST WING 05-31 17:53 → TELE-WESTW 06-19 15:24 → WEST WING 06-19 20:06
PROVIDERS: ADMIT Internal Medicine; ATTEND Internal Medicine
PROC: 0PBT0ZZ Excision of Right Finger Phalanx, Open Approach (ICD-10-PCS; 2020-05-13)
PROC: 0RBW0ZZ Excision of Right Finger Phalangeal Joint, Open Approach (ICD-10-PCS; principal; 2020-05-13 06:25)
DX: M00.9 Pyogenic arthritis, unspecified (principal); L02.511 Cutaneous abscess of right hand; L03.90 Cellulitis, unspecified; M86.141 Other acute osteomyelitis, right hand; E11.69 Type 2 diabetes mellitus with other specified complication; W50.3XXA Accidental bite by another person, initial encounter; F14.90 Cocaine use, unspecified, uncomplicated; F15.90 Other stimulant use, unspecified, uncomplicated; I10 Essential (primary) hypertension; S61.451A Open bite of right hand, initial encounter; M79.89 Other specified soft tissue disorders; F17.210 Nicotine dependence, cigarettes, uncomplicated; Z20.828 Contact with and (suspected) exposure to other viral communicable diseases; Z83.3 Family history of diabetes mellitus; Z90.49 Acquired absence of other specified parts of digestive tract; Z72.89 Other problems related to lifestyle
CPT/HCPCS: 36415; 73130; 73200; 80048; 80053; 80074; 80202; 82565; 83605; 85025; 85610; 85652; 85730; 86141; 86703; 86850; 86900; 86901; 87040; 87070; 87075; 87076; 87081; 87205; 87426; 97110; G0378; J0330; J0690; J0696; J1100; J1885; J2001; J2250; J2405; J2543; J2704; J3490